=== PATIENT | female | born 1955 | race Caucasian/White ===

== ENCOUNTER 2024-05-27 16:45 | Outpatient (CLI) | payer OTHER, SELFPAY ==
--- NOTE | ~2024-05-27 | XR_ITS ---
EXAMINATION: XR cervical spine 4-5V DATE: 05/27/2024 17:11 INDICATION: Neck pain. Cervical postlaminectomy syndrome. TECHNIQUE: 5 views of cervical spine including standing views were obtained. COMPARISON: None. FINDINGS: There is 16 degrees levoscoliosis of cervicothoracic spine. There are changes of anterior f usion procedure at C5-C6 with healed interbody bone graft and anterior plate and screws. Vertebral jennifer dy heights are normal. There is mildly decreased disc height at C4-C5 and C6-C7. There is multilevel facet joint osteoarthritis, severe on the left at C5-C6, C6-C7, and C7-T1. No central canal stenosis or prevertebral soft tissue swelling. IMPRESSION: 1. Mild cervical spondylosis. 2. Anterior fusion procedure at C5-C6. 3. Cervicothoracic levoscoliosis. Reviewed, dictated and finalized at location A. MBLER TYPE BAR AND SEGMENT
--- NOTE | ~2024-05-27 | XR_ITS ---
EXAMINATION: XR thoracic spine 3V DATE: 05/27/2024 17:11 INDICATION: Thoracic scoliosis. Back pain. TECHNIQUE: 3 views of thoracic spine standing were obtained. COMPARISON: None. FINDINGS: There is 16 degrees levoscoliosis of cervicothoracic spine. Vertebral body heights are norm al. There is mild to moderately decreased disc height at many levels of thoracic spine. There are julieta nges of anterior fusion procedure in cervical spine. IMPRESSION: 1. Moderate thoracic spondylosis. 2. Cervicothoracic levoscoliosis. Reviewed, dictated and finalized at location A. CULTURAL RESEARCH DIRECTOR
== END 2024-05-27 16:46 | disposition home or self-care (01) ==
LOC: MICIMG 16:50
PROVIDERS: PCP Internal Medicine; Visit Provider Physician Assistant
DX: M54.16 Radiculopathy, lumbar region (principal); M41.84 Other forms of scoliosis, thoracic region; M96.1 Postlaminectomy syndrome, not elsewhere classified; R29.2 Abnormal reflex
CPT/HCPCS: 72050; 72072

== ENCOUNTER 2024-06-01 11:13 | Outpatient (CLI) | payer OTHER, SELFPAY ==
--- NOTE | ~2024-06-01 | MR_ITS ---
EXAMINATION: MR thoracic spine wo con DATE: 06/01/2024 12:26 INDICATION: Lumbar radiculopathy TECHNIQUE: Magnetic resonance imaging (MRI) of the thoracic spine was performed without intravenous c ontrast. Sagittal localizer T1-weighted FSE of the cervicothoracic spine was obtained. Thoracic spine sequences included sagittal T2-weighted FSE, sagittal T1-weighted SE, Sagittal T2-weighted FS FSE, a nd axial T2-weighted FSE. COMPARISON: None FINDINGS: 20 degrees upper thoracic levoscoliosis. Sagittal alignment is normal.Vertebral body heights are norm al. Normal marrow signal.Multilevel mild to moderate disc height loss from T3-T4 through T10-T11 with right-sided predominance and upper thoracic levoscoliosis. There is multilevel moderate and severe f acet osteoarthritis throughout the thoracic spine which along with a few very small disc protrusions at a few levels contributes to multilevel contributes to mild central canal stenosis at several level s throughout the thoracic spine most prominent at T7-T8, T8-T9 and T10-T11. The paracentral disc prot rusions on the right at T7-T8 and on the left at T8-T9 mildly indents the ventral surface of the cord at these levels. There is mild neural from stenosis at a few levels in the mid to upper thoracic spi ne. There is normal spinal cord signal. The conus terminates at L2. Paravertebral soft tissues are un remarkable. Trace left pleural effusion. IMPRESSION: 1. 20 degrees upper thoracic levoscoliosis with mild to moderate spondylosis. Reviewed, dictated and finalized at location B. FOOD CREW LEAD
--- NOTE | ~2024-06-01 | MR_ITS ---
EXAMINATION: MR cervical spine wo con DATE: 06/01/2024 12:06 INDICATION: Neck pain. TECHNIQUE: Magnetic resonance imaging (MRI) of the cervical spine was performed without intravenous c ontrast. COMPARISON: Cervical spine radiographs 05/27/2024 FINDINGS: There is levoscoliosis of cervicothoracic spine. Vertebral body heights are normal. There a re changes of anterior fusion procedure at C5-C6 with healed interbody bone graft and anterior plate and screws. There is mildly decreased disc height at C4-C5. There is volume loss and increased T2-maye ghted signal intensity in the spinal cord at C5-C6, consistent with myelomalacia. The following disc levels are specifically discussed: C2-C3: The disc does not extend beyond the endplate margin. There is mild right uncovertebral joint o steoarthritis. There is mild bilateral facet joint osteoarthritis. There is no neural foraminal steno sis. There is no central canal stenosis. C3-C4: There is a central protrusion. There is mild bilateral uncovertebral joint osteoarthritis. The re is no facet joint osteoarthritis. There is no neural foraminal stenosis. There is mild central can al stenosis with ventral indentation of the spinal cord. C4-C5: There is a central extrusion. There is mild bilateral uncovertebral joint osteoarthritis. Ther e is no facet joint osteoarthritis. There is mild left neural foraminal stenosis. There is mild centr al canal stenosis. C5-C6: There is moderate bilateral uncovertebral joint hypertrophy. There is mild left facet joint os teoarthritis. There is mild bilateral neural foraminal stenosis. There is no central canal stenosis. C6-C7: There is a central extrusion. There is mild bilateral uncovertebral joint osteoarthritis. Ther e is mild right and moderate left facet joint osteoarthritis. There is mild bilateral neural foramina l stenosis. There is mild central canal stenosis. C7-T1: The disc does not extend beyond the endplate margin. There is no uncovertebral joint osteoarth ritis. There is mild right and moderate left facet joint osteoarthritis. There is mild bilateral neur al foraminal stenosis. There is no central canal stenosis. IMPRESSION: 1. Myelomalacia at C5-C6. 2 . Mild cervical spondylosis. 3. Anterior fusion procedure at C5-C6. Reviewed, dictated and finalized at location A. FOREMAN
== END 2024-06-01 11:14 | disposition home or self-care (01) ==
PROVIDERS: PCP Internal Medicine; Visit Provider Physician Assistant
DX: M47.22 Other spondylosis with radiculopathy, cervical region (principal); Z98.1 Arthrodesis status; Z01.818 Encounter for other preprocedural examination
CPT/HCPCS: 72141; 72146

== ENCOUNTER 2024-08-27 10:28 | Outpatient (CLI) | payer OTHER, SELFPAY ==
--- NOTE | 2024-08-27 | ECG_ITS ---
Test Date: 2024-08-27 10:20:43 Measurements Intervals [place] Rate: 69 P: 67 AL: 152 QRS: 66 QRSD: 77 T: 60 QT: 428 QTc: 459 Interpretive Statements SINUS RHYTHM BORDERLINE T WAVE ABNORMALITY- ANTERIOR LEADS BASELINE ARTIFACT- V3-V4 BORDERLINE ECG No previous ECG available for comparison Electronically Signed On 08-27-2024 12:01:12 CDT by Tommie Gregory D.O.
[2024-08-27 11:06] LABS: Basophils Percent Auto 0.4 % (0.2-1.2); Eosinophils Absolute Auto 0.4 K/mm3 (0-0.3); Eosinophils Percent Auto 5.9 % (0-4.4); Hematocrit 39.5 % (37.0-47.0); Hemoglobin 13.3 g/dL (12.0-15.0); Immature Granulocyte Absolute 0.02 K/mm3 (0.00-0.031); Immature Granulocyte Percent A 0.3 % (0-0.5); Lymphocytes Absolute Auto 2.81 K/mm3 (0.9-3.2); Lymphocytes Percent Auto 41.6 % (18.3-44.2); Mean Corpuscular HGB Conc 33.7 g/dl (32-36); Mean Corpuscular Hemoglobin 33.3 pg (26-34); Mean Platelet Volume 9.4 fl (7.4-10.4); Monocytes Absolute Auto 0.5 K/mm3 (0.1-0.6); Neutrophils Percent Auto 43.8 % (45.5-73.1); Platelet Count Result 165 k/mm3 (150-375); Red Blood Count 3.99 M/mm3 (4.2-5.4); Red Cell Distribution Width 12.3 % (11.5-14.5); White Blood Count 6.8 K/mm3 (4.5-10.0)
[2024-08-27 11:18] LABS: Add Urine Microscopic? NO; Appearance Urine Clear (Clear); Bilirubin Urine Negative (Negative); Blood Urine Negative (Negative); Color Urine Yellow (Yellow); Glucose Urine UA Negative (Negative); Ketones Urine Negative (Negative); Leukocyte Esterase Ur Negative LEU/UL (Negative); Nitrate Urine Negative (Negative); Protein Urine Negative (Negative); Urobilinogen Urine 0.2 mg/dL (<2.0)
--- OUTSIDE RECORDS SUMMARY | 2024-08-27 11:18 | XMS_ITS | Encounter Summary ---
Author Organization [facility] Healthcare Address [address] [place] [id number] Care Team Providers Care Business Dean Name Role Phone Anam Reynolds MD Primary Care Provider [phone] Anam Reynolds MD Unavailable [phone] Encounter Details Date Type Department Care Team (Late st Contact Info) Description 06/01/2024 [place] Only [facility] [place] [address] [place] [id number] Scanning, Provider Social History Tobacco Use Types Packs/Day Years Used Date Smoking Tobacco: Every Day Cigarettes 0.3 51.3 Started: 1973 Passive Smoke Exposure: Current Smokeless Tobacco: Never Comments:4 cigarettes per da y Alcohol Use Standard Drinks/Week Comments Not Currently 0 (1 standard drink = 0.6 oz pur e alcohol) AUDIT-C Answer Date Recorded Q1: How often do you have a drink containing alcohol? Never 02/03/2024 Q2: How many drinks containi ng alcohol do you have on a typical day when you are drinking? Patient does not drink Q3: How often do you have si x or more drinks on one occasion? Never 02/03/2024 PHQ-2 Answer Date Recorded PHQ-2 Total Score (If total score is 3 or more points, staff should administer the PHQ-9) 0 10/18/2023 Comments No Sex and Gender Information Value Date Recorded Sex Assigned at Not on file Legal Sex Female 8:25 AM CDT Gender Identity Female 10/04/2020 10:37 AM CDT Sexual Orientation Not on file documented as of this encounter Plan of Treatment Not on file documented as of this encounter Procedures Procedure Name Priority Date/Time Associated Diagnosis Comments SCAN - RADIOLOGY/IMAGING 06/01/2024 documented in this encounter Results * SCAN - RADIOLOGY/IMAGING (06/01/2024) Anatomical Region Laterality Modality Other us Provider Scanning Final Result documented in this encounter Visit Diagnoses Not on filedocumented in this encounter Care Teams Business Dean Relationship Specialty Start Date End Date Anam Reynolds MD [address] [facility] [facility] [address] [place] [address] PCP - General Internal Medicine 07/03/18 Anam Reynolds MD [address] [facility] [address] [place] [address] Internal Medicine 07/03/18 documented as of this encounter
--- OUTSIDE RECORDS SUMMARY | 2024-08-27 11:18 | XMS_ITS | Referral Summary ---
Author Organization [facility] Address [address] [place] [address] Care Team Providers Care Broadcast Chief Engineer Name Role Phone Anam Reynolds MD Primary Care Provider [phone] Anam Reynolds MD Unavailable [phone] Encounters Date Type Department Care Team Description 07/27/2024 Telephone [facility] Internal Medicine [address] [place] [phone] Anam Reynolds MD Medical Question/Miscellaneous 06/24/2024 2:45 PM E BUSINESS CONSULTANT Office Visit [facility] Internal Medicine [address] [place] [phone] Anam Reynolds MD Acquired hypothyroidism (Primary Dx); Simple chronic bronchitis (HCC); Dyslipidemia; History of breast cancer; Spinal stenosis of lumbar region without neurogenic claudication; BMI 24.0-24.9, adult; Encounter for immunization; Tobacco use 06/17/2024 Orders Only [facility] Internal Medicine [address] [place] [phone] Anam Reynolds MD 06/15/2024 Telephone [facility] Internal Medicine [address] [place] [phone] Anam Reynolds MD Referral Request 06/01/2024 Orders Only [facility] Health Information Management [address] [place] [address] Scanning, Provider from Last 3 Months Allergies Active Allergy Reactions Criticality Noted Date Comments Adhesive Rash Medium 07/02/2017 If leaves on too long, has skin irritation Codeine Vomiting Low 07/02/2017 Codeine Phosphate Vomiting Low 08/26/2018 Famotidine Nausea only Low 06/03/2019 Sulfa (Sulfonamide Antibiotics) Swelling Medium 07/02/2017 Tongue, lips swell, difficulty breathing Tramadol Nausea & Vomiting Low 02/28/2021 Medications nebulizers [facility] as directed TAKE: as directed, as directed compAir 06/15/19 17 Active bisacodyl EC (DULCOLAX EC) 5 mg EC tablet 1 tablet (5 mg total) daily TAKE: 1 tablet as needed, Once a day Active naproxen (ANAPROX,ALEVE) 550 mg tablet every 12 (twelve) hours TAKE: 1 tablet with food or milk as needed, every 12 hrs Active calcium carbonate-vitamin D3 1,250 mg (500 mg elemental)-600 unit tablet Take 500 mg by mouth daily 30 tablet 5 06/08/19 23 Active levothyroxine (SYNTHROID) 75 mcg tablet Take 1 tablet (75 mcg total) by mouth validation intern before breakfast Take one tablet in the morning with no food or medications for 2 hours 90 tablet 2 12/10/19 24 Active baclofen (LIORESAL) 10 mg tablet TAKE 1 TABLET BY MOUTH TWICE A DAY 180 tablet 12/26/19 24 Active Additional Information Patient not taking.Reported on 06/24/2024 albuterol HFA (PROVENTIL HFA,VENTOLIN HFA,PROAIR HFA) 90 mcg/actuation inhaler Inhale 2 puffs every 4 (four) hours as needed for wheezing 1 each 3 01/27/20 24 Active albuterol 2.5 mg /3 mL (0.083 %) nebulizer solution Take 3 mL (2.5 mg total) by nebulization every 6 (six) hours as needed for wheezing or shortness of breath 120 mL 1 01/27/20 24 Active ALPRAZolam (XANAX) 0.25 mg tablet Take 1 tablet (0.25 mg total) by mouth nightly as needed for anxiety 30 tablet 02/03/20 24 Active pravastatin (PRAVACHOL) 20 mg tablet TAKE 1 TABLET BY MOUTH EVERY DAY 100 tablet 1 04/14/[address] (PROTONIX) 40 mg EC tablet TAKE 1 TABLET BY MOUTH EVERY DAY 90 tablet 1 06/29/19 25 Active Breyna 80-4.5 mcg/actuation inhaler INHALE 2 PUFFS BY MOUTH 2 TIMES A DAY RINSE MOUTH WITH WATER AFTER USE. DO NOT SWALLOW. 30.9 each 1 06/29/19 25 Active ondansetron ODT (ZOFRAN-ODT) 4 mg disintegrating tablet Take 1 tablet (4 mg total) by mouth 3 (three) times a day as needed for nausea or vomiting 30 tablet 1 07/09/19 25 Active Active Problems Problem Noted Date Diagnosed Date Colon cancer screening 07/11/2023 Assessment & Plan (10/18/2023 11:44 AM CDT): Patient does not want to have colonoscopy at this time because of her back issues. She had colonoscopy 5 years ago that showed 1 polyp. She was seen by the event staff. Patient wants to have Cologuard test done. We will order that. Patient still can follow up with a event staff if she changes her mind. Assessment & Plan (07/11/2023 12:46 PM E BUSINESS CONSULTANT): GI referral for colonoscopy Screening for osteoporosis 06/06/2022 Assessment & Plan (06/06/2022 11:08 AM E BUSINESS CONSULTANT): DEXA scan in May 2022 showed T-score of -1.3. Discussed fall precautions and advised to take vitamin D 1000 units daily and calcium 500 mg daily LUQ pain 08/07/2021 Assessment & Plan (09/04/2021 11:27 AM CDT): Patient was seen by the event staff. She is on Protonix. She is scheduled for EGD to [facility] Assessment & Plan (08/07/2021 12:18 PM CDT): Patient complains of discomfort in the left upper quadrant area. Exam is unremarkable. Will obtain CT of the abdomen for further evaluation and will make a referral to see GI doctor for possible endoscopy. She will continue with current medications at this time Nausea 07/26/2021 Assessment & Plan (07/26/2021 11:24 AM E BUSINESS CONSULTANT): Patient has severe nausea for couple of weeks. We will start her on Protonix 40 mg daily. I told her to avoid food that triggers her symptoms. Try to avoid spicy food and oily food at this time. Will obtain right upper quadrant ultrasound as well to rule out gallbladder cause of this severe nausea. Advised to increase fluid intake. I told her also to take probiotic twice daily. Will evaluate her again in few weeks. Skin rash 04/18/2021 Assessment & Plan (03/06/2022 12:19 PM CDT): Patient with chronic patches of scaly lesions on the lower extremities and will make a referral to see the exploration geologist Assessment & Plan (05/30/2021 9:40 AM E BUSINESS CONSULTANT): Skin rash in the lower extremities improved significantly. Assessment & Plan (04/18/2021 2:37 PM E BUSINESS CONSULTANT): The patient has multiple flat erythematous lesions on both arms and legs. I think it is related to recent COVID infection. Patient has no itching. She will be started on prednisone in a tapering does and she will call us for persistent symptoms. Thrush 04/01/2021 Assessment & Plan (05/30/2021 9:41 AM E BUSINESS CONSULTANT): We will refill nystatin 4 times daily for 10 days Assessment & Plan (04/01/2021 12:41 PM E BUSINESS CONSULTANT): Due to use of Symbicort and recent steroid taper dose will refill nystatin swish and swallow. Patient instructed to follow up with PCP for any worsening symptoms. Patient verbalized understanding and agreed to plan of care. Encounter for well woman kathy maharaj with routine gynecological exam 10/04/2020 BMI 25.0-25.9,adult 10/04/2020 Skin lesion 12/08/2019 Assessment & Plan (12/08/2019 2:24 PM CDT): Patient has small papular skin lesion on the forehead with no skin changes most likely seborrheic keratosis and it was treated with liquid nitrogen. Cervical disc disease 03/04/2019 Lumbar disc disease 03/04/2019 Assessment & Plan (09/04/2022 8:07 AM CDT): Patient with chronic back pain. She had epidural injections. She was seen by neurosurgeon. It was felt that surgery was not needed Assessment & Plan (03/04/2019 3:10 PM CDT): Neurosurgical referral for further evaluation Myelopathy 12/18/2018 Neuropathic pain 12/18/2018 Spasms of the hands or feet 12/18/2018 Cervical disc herniation 12/03/2018 Assessment & Plan (09/06/2020 2:44 PM CDT): Status post cervical laminectomy Assessment & Plan (09/02/2019 2:43 PM CDT): Status post cervical laminectomy Assessment & Plan (06/03/2019 2:27 PM E BUSINESS CONSULTANT): Status post cervical fusion Assessment & Plan (03/04/2019 3:10 PM CDT): Status post diskectomy Assessment & Plan (12/03/2018 2:10 PM CDT): The patient had surgery with persistent pain in her upper extremities and she has follow-up with pain management. Anxiety 12/03/2018 Assessment & Plan (06/24/2024 7:56 AM E BUSINESS CONSULTANT): Patient takes Xanax p.r.n.. No side effects with the medication Assessment & Plan (12/03/2018 2:10 PM CDT): The patient has increased anxiety because of chronic pain. We will start her on Wellbutrin XL 150 mg daily and side effects were explained Tobacco use 12/03/2018 Assessment & Plan (06/24/2024 3:31 PM E BUSINESS CONSULTANT): Discussed smoking cessation and different methods to help with that. Discussed the risks of smoking including COPD, CAD and lung cancer etc. Total time spent was 4 minutes. Assessment & Plan (2022 5:32 PM CDT): Discussed smoking cessation and different methods to help with that. Discussed the risks of smoking including COPD, CAD and lung cancer etc. Total time spent was 3 minutes. Assessment & Plan (09/04/2022 8:07 AM CDT): Discussed smoking cessation again Assessment & Plan (06/06/2022 8:03 AM E BUSINESS CONSULTANT): Discussed smoking cessation and different methods to help with that. Discussed the risks of smoking including COPD, CAD and lung cancer etc. Total time spent was 4 minutes. Assessment & Plan (09/04/2021 11:27 AM CDT): Discussed smoking cessation and different methods to help with that. Discussed the risks of smoking including COPD, CAD and lung cancer etc. we will start her on Wellbutrin XR 150 mg daily Total time spent was 4 minutes. Assessment & Plan (05/30/2021 9:42 AM E BUSINESS CONSULTANT): Patient smokes about 5 cigarettes daily. Discussed smoking cessation and different methods to help with that. Discussed the risks of smoking including COPD, CAD and lung cancer etc. Total time spent was 3 minutes. Assessment & Plan (03/07/2021 12:34 PM CDT): Discussed smoking cessation and different methods to help with that. Discussed the risks of smoking including COPD, CAD and lung cancer etc. Total time spent was 3 minutes. Assessment & Plan (12/06/2020 1:12 PM CDT): Discussed smoking cessation and different methods to help with that. Discussed the risks of smoking including COPD, CAD and lung cancer etc. Total time spent was 3 minutes. Assessment & Plan (12/08/2019 12:42 PM CDT): Discussed smoking cessation and different methods to help with that. Discussed the risks of smoking including COPD, CAD and lung cancer etc. Total time spent was 3 minutes. Assessment & Plan (12/03/2018 2:11 PM CDT): Discussed smoking cessation and different methods to help with that. Discussed the risks of smoking including COPD, CAD and lung cancer etc. Total time spent was 3 minutes. Peripheral neuropathy 02/27/2018 Assessment & Plan (09/04/2021 11:26 AM CDT): Patient with neuropathy secondary to chronic back pain. 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 Assessment & Plan (12/03/2018 2:09 PM CDT): The patient has a chronic numbness in the lower extremities most likely secondary to the back disease Assessment & Plan (09/03/2018 12:24 PM CDT): Patient continues to have numbness in the lower extremities Left carpal tunnel syndrome 01/11/2017 Spinal stenosis of lumbar region 12/24/2016 Assessment & Plan (06/24/2024 7:56 AM E BUSINESS CONSULTANT): Patient is followed by pain management Assessment & Plan (02/03/2024 11:45 AM CDT): Patient with persistent degenerative disc disease and severe spinal stenosis. She was evaluated by neurosurgeon few years ago and he recommended against surgery at that time. Patient likes due explore other options. Will make a referral to see pain management again for further evaluation. Assessment & Plan (01/27/2024 3:11 PM CDT): Patient with chronic back pain. She had epidural injections. She was seen by neurosurgeon in the past. She had recurrent pain recently. We did physical therapy with persistent symptoms. She had MRI of the lumbar spine today. Assessment & Plan (10/18/2023 11:42 AM CDT): Patient with chronic lower back pain. She has radiation down her legs. She has increased pain in the last few months. Patient takes pain medications and she tried muscle relaxants with no improvement. Patient had epidural injections in the past. She was evaluated by neurosurgeon as well in the past. We ordered MRI of the lumbar spine in the insurance company is requesting physical therapy. Patient will start on physical therapy. Patient to call us for persistent symptoms. Patient to go to the emergency room for weakness in the lower extremities or incontinence or worsening symptoms. Assessment & Plan (02/26/2023 12:38 PM CDT): Patient with spinal stenosis of the lumbar spine. Patient has increased symptoms with pain radiating down both legs. Patient is leaving town next week so she does not want any workup at this time. Patient may need MRI and pain management referral depending on the progress of her symptoms. Patient to let me know if she wants to proceed with more testing Assessment & Plan (06/06/2022 8:03 AM E BUSINESS CONSULTANT): Status post epidural injections in the past. Patient was seen by neurosurgeon. No surgical intervention is needed. Assessment & Plan (12/15/2021 12:24 PM CDT): Patient with chronic back pain status post epidural injections. She was evaluated by neurosurgeon. Does not seem that surgery will be of benefits. She takes baclofen once or twice daily with some relief. Assessment & Plan (05/30/2021 9:40 AM E BUSINESS CONSULTANT): Patient was advised to follow-up with pain management. Will refill baclofen Assessment & Plan (03/07/2021 12:33 PM CDT): Patient is under the care of pain management. She is on physical therapy and she is scheduled for epidural injections. She did epidural injections in the past and they did not help Assessment & Plan (12/06/2020 2:48 PM CDT): Patient was evaluated by neurosurgeon. No surgical intervention is needed. She was offered to see pain management. She wants to wait on that. Assessment & Plan (12/08/2019 12:42 PM CDT): Patient was evaluated by neurosurgeon. No surgical intervention is needed Assessment & Plan (09/02/2019 2:42 PM CDT): The patient has a chronic back pain secondary to lumbar stenosis. She was evaluated by neurosurgeon. It seems that no surgical intervention is needed or can help Assessment & Plan (06/03/2019 2:26 PM E BUSINESS CONSULTANT): Patient was evaluated by more than 1 neurosurgeon. I don't believe that she will benefit from surgery. The patient uses a walker for ambulation. The patient was advised to avoid heavy lifting or carrying or pushing . Assessment & Plan (12/03/2018 2:09 PM CDT): As above Lumbago with sciatica, unspecified side 12/08/19 Assessment & Plan (12/03/2018 2:08 PM CDT): The patient has a chronic pain in the lower back area and the lower extremities and she has follow-up with pain management. Assessment & Plan (09/03/2018 12:24 PM CDT): No change and the patient has follow-up with a neurologist Primary insomnia 12/07/2016 Assessment & Plan (07/11/2023 8:08 AM E BUSINESS CONSULTANT): Controlled on trazodone Assessment & Plan (02/26/2023 8:05 AM CDT): Controlled on trazodone Assessment & Plan (2022 5:32 PM CDT): Controlled on trazodone Assessment & Plan (09/04/2021 11:27 AM CDT): Patient will be started on trazodone 100 mg before bedtime. Assessment & Plan (12/03/2018 2:10 PM CDT): Patient takes melatonin 5 mg q.h.s. P.r.n. With good results Neck pain 08/24/2016 Hyperglycemia 01/24/2016 Assessment & Plan (07/11/2023 8:08 AM E BUSINESS CONSULTANT): Controlled on diet Assessment & Plan (02/26/2023 8:05 AM CDT): Controlled on diet Assessment & Plan (2022 5:31 PM CDT): Controlled on diet Assessment & Plan (06/06/2022 8:02 AM E BUSINESS CONSULTANT): Continue low carb diet and encourage exercise as tolerated Assessment & Plan (03/06/2022 8:02 AM CDT): Continue low carb diet Assessment & Plan (12/15/2021 12:23 PM CDT): Fasting blood sugar was 105. Continue low carb diet Assessment & Plan (09/04/2021 11:26 AM CDT): Continue low calorie diet Assessment & Plan (05/30/2021 9:40 AM E BUSINESS CONSULTANT): Continue low carb diet Assessment & Plan (03/07/2021 12:33 PM CDT): Continue low carb diet and increase activity as tolerated Assessment & Plan (12/06/2020 1:12 PM CDT): Continue low carb diet and ambulate as tolerated Assessment & Plan (09/06/2020 2:43 PM CDT): Continue low carb diet Assessment & Plan (06/08/2020 12:46 PM E BUSINESS CONSULTANT): Low carb diet Assessment & Plan (03/08/2020 1:53 PM CDT): Continue low carb diet and we discussed weight loss Assessment & Plan (12/08/2019 12:42 PM CDT): Continue low carb diet and will continue to monitor Assessment & Plan (06/03/2019 12:37 PM E BUSINESS CONSULTANT): Continue low carbohydrate diet Assessment & Plan (03/04/2019 3:10 PM CDT): Sugar level is normal Assessment & Plan (12/03/2018 2:08 PM CDT): Continue low carbohydrate diet and will continue to monitor Assessment & Plan (09/03/2018 12:23 PM CDT): Continue low carb diet History of breast cancer 10/15/2015 Assessment & Plan (06/24/2024 7:56 AM E BUSINESS CONSULTANT): Status post mastectomy. She is up-to-date with mammogram Assessment & Plan (10/18/2023 7:52 AM CDT): Status post mastectomy. She is up-to-date with mammogram Assessment & Plan (02/26/2023 8:05 AM CDT): Status post mastectomy. She is up-to-date with mammogram Assessment & Plan (2022 5:32 PM CDT): Status post mastectomy. She is up-to-date with mammogram Assessment & Plan (09/04/2022 8:06 AM CDT): Status post mastectomy. Looks mammogram in May 2022 was normal Assessment & Plan (05/30/2021 9:41 AM E BUSINESS CONSULTANT): Status post mastectomy and she is up-to-date with mammogram Assessment & Plan (03/07/2021 12:34 PM CDT): Mammogram in January 2021 was normal Assessment & Plan (12/06/2020 1:12 PM CDT): Continue annual mammogram Assessment & Plan (12/08/2019 12:43 PM CDT): Continue with annual mammogram Assessment & Plan (06/03/2019 2:27 PM E BUSINESS CONSULTANT): Patient was advised to have annual mammogram Assessment & Plan (12/03/2018 2:09 PM CDT): Status post lumpectomy and she does mammogram on annual basis COPD (chronic obstructive pulmonary disease) Assessment & Plan (06/24/2024 7:55 AM E BUSINESS CONSULTANT): Asymptomatic. Continue Symbicort Assessment & Plan (01/27/2024 8:01 AM CDT): Asymptomatic. Continue Symbicort Assessment & Plan (10/18/2023 7:52 AM CDT): Asymptomatic. Continue Symbicort Assessment & Plan (07/11/2023 8:07 AM E BUSINESS CONSULTANT): Asymptomatic. Continue Symbicort Assessment & Plan (02/26/2023 12:38 PM CDT): Asymptomatic. Continue Symbicort Assessment & Plan (2022 5:31 PM CDT): Asymptomatic Assessment & Plan (09/04/2022 8:06 AM CDT): Patient uses Symbicort with good results Assessment & Plan (06/06/2022 8:02 AM E BUSINESS CONSULTANT): Patient uses Symbicort with good results Assessment & Plan (03/06/2022 8:02 AM CDT): Controlled on Symbicort Assessment & Plan (12/15/2021 12:23 PM CDT): Controlled on Symbicort Assessment & Plan (09/04/2021 11:26 AM CDT): Controlled on Symbicort. She uses albuterol inhaler on occasional basis Assessment & Plan (05/30/2021 9:41 AM E BUSINESS CONSULTANT): Asymptomatic. She uses albuterol inhaler on occasional basis. Advised to continue to Symbicort. Discussed smoking cessation. Assessment & Plan (03/07/2021 12:32 PM CDT): Continue Symbicort daily and albuterol as needed Assessment & Plan (12/06/2020 1:12 PM CDT): Controlled on Symbicort. Discussed smoking cessation again Assessment & Plan (09/06/2020 2:43 PM CDT): Controlled on Symbicort and we discussed smoking cessation Assessment & Plan (06/08/2020 2:55 PM E BUSINESS CONSULTANT): Patient was advised to cut down Symbicort to 1 inhalation daily and continue to rinse her mouth on regular basis. She will call us if she has persistent oral thrush Assessment & Plan (03/08/2020 1:52 PM CDT): We will start her on Symbicort 80 mcg 2 puffs b.i.d. because of increased use of the albuterol inhaler and see if that helps with the symptoms. We discussed smoking cessation. Assessment & Plan (12/08/2019 12:41 PM CDT): Asymptomatic. We discussed smoking cessation Assessment & Plan (09/02/2019 2:41 PM CDT): The patient is currently asymptomatic. She uses nebulizer treatment on occasional basis Assessment & Plan (06/03/2019 12:37 PM E BUSINESS CONSULTANT): The patient is asymptomatic and we discussed smoking cessation Assessment & Plan (03/04/2019 3:11 PM CDT): Patient is asymptomatic. Discussed smoking cessation and different methods to help with that. Discussed the risks of smoking including COPD, CAD and lung cancer etc. Total time spent was 3 minutes. Assessment & Plan (12/03/2018 2:07 PM CDT): The patient is currently stable and she uses Ventolin inhaler and nebulizer treatment on as needed basis. Assessment & Plan (09/03/2018 12:23 PM CDT): Asymptomatic. We discussed smoking cessation. She smokes less than 5 cigarettes daily. GERD (gastroesophageal reflux disease) 6 Assessment & Plan (07/11/2023 8:08 AM E BUSINESS CONSULTANT): Patient is stable with no GI symptoms Assessment & Plan (03/08/2020 1:53 PM CDT): Patient is stable with no GI symptoms Assessment & Plan (12/08/2019 12:42 PM CDT): Controlled on Pepcid Assessment & Plan (06/03/2019 12:37 PM E BUSINESS CONSULTANT): Asymptomatic. Continue Pepcid Assessment & Plan (03/04/2019 3:09 PM CDT): Continue Pepcid 40 mg daily Assessment & Plan (12/03/2018 2:08 PM CDT): Controlled on Pepcid Assessment & Plan (09/03/2018 12:23 PM CDT): Asymptomatic Dyslipidemia 08/02/2015 Assessment & Plan (06/24/2024 7:55 AM E BUSINESS CONSULTANT): Controlled on current medications. Continue low-fat diet. Will continue to monitor . Assessment & Plan (01/27/2024 8:01 AM CDT): Controlled on current medications. Continue low-fat diet. Will continue to monitor . Assessment & Plan (07/11/2023 8:08 AM E BUSINESS CONSULTANT): Controlled on current medications. Continue low-fat diet. Will continue to monitor . Assessment & Plan (2022 5:31 PM CDT): Controlled on current medications. Continue low-fat diet. Will continue to monitor . Assessment & Plan (06/06/2022 8:02 AM E BUSINESS CONSULTANT): Controlled on current medications. Continue low-fat diet. Will continue to monitor . Assessment & Plan (03/06/2022 8:02 AM CDT): Controlled on current medications. Continue low-fat diet. Will continue to monitor . Assessment & Plan (12/15/2021 12:23 PM CDT): Controlled on current medications. Continue low-fat diet. Will continue to monitor . Assessment & Plan (09/04/2021 11:26 AM CDT): Controlled on current medications. Continue low-fat diet. Will continue to monitor . Assessment & Plan (05/30/2021 9:41 AM E BUSINESS CONSULTANT): Controlled on current medications. Continue low-fat diet. Will continue to monitor . Assessment & Plan (03/07/2021 12:32 PM CDT): Controlled on current medications. Continue low-fat diet. Will continue to monitor . Assessment & Plan (12/06/2020 1:12 PM CDT): Controlled on current medications. Continue low-fat diet. Will continue to monitor . Assessment & Plan (09/06/2020 2:43 PM CDT): Controlled on current medications. Continue low-fat diet. Will continue to monitor . Assessment & Plan (06/08/2020 12:46 PM E BUSINESS CONSULTANT): Controlled on current medications. Continue low-fat diet. Will continue to monitor . Assessment & Plan (03/08/2020 1:53 PM CDT): Controlled on current medications. Continue low-fat diet. Will continue to monitor . Assessment & Plan (12/08/2019 12:42 PM CDT): Controlled on current medications. Continue low-fat diet. Will continue to monitor . Assessment & Plan (09/02/2019 2:41 PM CDT): Controlled on current medications. Continue low-fat diet. Will continue to monitor . Assessment & Plan (06/03/2019 12:37 PM E BUSINESS CONSULTANT): Controlled on current medications. Continue low-fat diet. Will continue to monitor . Assessment & Plan (03/04/2019 3:09 PM CDT): Controlled on current medications. Continue low-fat diet. Will continue to monitor . Assessment & Plan (12/03/2018 2:08 PM CDT): Controlled on current medications. Continue low-fat diet. Will continue to monitor . Assessment & Plan (09/03/2018 12:23 PM CDT): Controlled on current medications. Continue low-fat diet. Will continue to monitor . Acquired hypothyroidism 08/02/2015 Assessment & Plan (06/24/2024 7:55 AM E BUSINESS CONSULTANT): Continue current dose of medication. Will continue to monitor Assessment & Plan (01/27/2024 8:01 AM CDT): Continue current dose of medication. Will continue to monitor Assessment & Plan (10/18/2023 7:52 AM CDT): Continue current dose of medication. Will continue to monitor Assessment & Plan (07/11/2023 12:45 PM E BUSINESS CONSULTANT): TSH is low. Will cut down levothyroxine 250 mcg q.a.m. and repeat blood work in few months Assessment & Plan (02/26/2023 8:04 AM CDT): Continue current dose of medication. Will continue to monitor Assessment & Plan (2022 5:31 PM CDT): Continue current dose of medication. Will continue to monitor Assessment & Plan (09/04/2022 8:05 AM CDT): Continue current dose of medication. Will continue to monitor Assessment & Plan (06/06/2022 8:02 AM E BUSINESS CONSULTANT): Continue current dose of medication. Will continue to monitor Assessment & Plan (03/06/2022 8:02 AM CDT): Continue current dose of medication. Will continue to monitor Assessment & Plan (12/15/2021 12:23 PM CDT): TSH is slightly low at 0.21. Free T4 was 1.8 Patient is asymptomatic. She feels fine with no headache or dizziness or palpitation or heat or cold intolerance. Will keep her on the same does Assessment & Plan (09/04/2021 11:26 AM CDT): Continue current dose of medication. Will continue to monitor Assessment & Plan (05/30/2021 9:40 AM E BUSINESS CONSULTANT): Continue current dose of medication. Will continue to monitor Assessment & Plan (03/07/2021 12:33 PM CDT): Continue current dose of medication. Will continue to monitor Assessment & Plan (12/06/2020 2:47 PM CDT): We increased levothyroxine to 75 mcg q.a.m. and she will repeat the blood work again in 2-3 months Assessment & Plan (09/06/2020 2:43 PM CDT): Continue current dose of medication. Will continue to monitor Assessment & Plan (06/08/2020 2:56 PM E BUSINESS CONSULTANT): TSH is low. We will cut down levothyroxine dose to 50 mcg q.a.m. and repeat thyroid function test in few months Assessment & Plan (03/08/2020 1:53 PM CDT): Continue current dose of medication. Will continue to monitor Assessment & Plan (12/08/2019 12:42 PM CDT): Continue current dose of medication. Will continue to monitor Assessment & Plan (09/02/2019 2:41 PM CDT): Continue current dose of medication. Will continue to monitor Assessment & Plan (06/03/2019 12:38 PM E BUSINESS CONSULTANT): Continue current dose of medication. Will continue to monitor Assessment & Plan (03/04/2019 3:10 PM CDT): Continue current dose of medication. Will continue to monitor Assessment & Plan (12/03/2018 2:08 PM CDT): Continue current dose of medication. Will continue to monitor Assessment & Plan (09/03/2018 12:23 PM CDT): Controlled on medication Immunizations Immunization Administration Dates Next Due Influenza, Quadrivalent, Hig h Dose, Preservative Free, Intrr 02/26/2023,03/07/2021 Influenza, Quadrivalent, Spl it, Intramuscular 02/27/2018,02/25/2017,05/03/2016 Influenza, Quadrivalent, Spl it, Preservative Free, Intramuscular 03/06/2022,03/08/2020,03/04/2019 Influenza, Trivalent, High D ose, Split, Preservative Free, Intramuscular 06/24/2024 Pneumococcal Conjugate PCV 13 05/30/2021 Pneumococcal Conjugate Pcv20 09/04/2022 Social History Tobacco Use Types Packs/Day Years Used Date Smoking Tobacco: Every Day Cigarettes 0.3 51.3 Started: 1973 Passive Smoke Exposure: Current Smokeless Tobacco: Never Tobacco Cessation:Ready to Q uit: Not Asked; Counseling Given: Not Answered Comments:4 cigarettes per day Alcohol Use Standard Drinks/Week Comments Not Currently 0 (1 standard drink = 0.6 oz pur e alcohol) AUDIT-C Answer Date Recorded Q1: How often do you have a drink containing alcohol? Never 06/24/2024 Q2: How many drinks containi ng alcohol do you have on a typical day when you are drinking? Patient does not drink Q3: How often do you have si x or more drinks on one occasion? Never 06/24/2024 PHQ-2 Answer Date Recorded PHQ-2 Total Score (If total score is 3 or more points, staff should administer the PHQ-9) 0 10/18/2023 Comments No Sex and Gender Information Value Date Recorded Sex Assigned at Not on file Legal Sex Female 8:25 AM CDT Gender Identity Female 10/04/2020 10:37 AM CDT Sexual Orientation Not on file Last Filed Vital Signs Vital Sign Reading Time Taken Comments Blood Pressure 140/80 06/24/2024 2:30 PM E BUSINESS CONSULTANT Pulse 70 06/24/2024 2:30 PM E BUSINESS CONSULTANT Temperature 36.4 C (97.5 F) 06/24/2024 2:30 PM E BUSINESS CONSULTANT Respiratory Rate 18 06/24/2024 2:30 PM E BUSINESS CONSULTANT Oxygen Saturation 99% 06/24/2024 2:30 PM E BUSINESS CONSULTANT Inhaled Oxygen Concentration - - Weight 58.5 kg (129 lb) 06/24/2024 2:30 PM E BUSINESS CONSULTANT Height 154.9 cm (5' 1 ) 06/24/2024 2:30 PM E BUSINESS CONSULTANT Body Mass Index 24.37 06/24/2024 2:30 PM E BUSINESS CONSULTANT Plan of Treatment Not on file Medical Devices Implanted Type Area Braker Passenger Train Device Identifier Shelf Expiration Date Model / Serial / Lot Spinal Fusion- 8 Implanted:07/04 (Quantity not on file) Cervical-Tash mbar Spine Procedures Procedure Name Priority Date/Time Associated Diagnosis Comments COMPREHENSIVE METABOLIC PANEL Routine 06/17/2024 12:14 PM E BUSINESS CONSULTANT LIPID PANEL Routine 06/17/2024 12:14 PM E BUSINESS CONSULTANT TSH Routine 06/17/2024 12:14 PM E BUSINESS CONSULTANT T4, FREE Routine 06/17/2024 12:14 PM E BUSINESS CONSULTANT CBC WITH AUTO DIFFERENTIAL Routine 06/17/2024 12:14 PM E BUSINESS CONSULTANT SCAN - RADIOLOGY/IMAGING 06/01/2024 STOOL DNA COLOGUARD Routine 11/11/2023 11:15 AM CDT Colon cancer screening SCREENING MAMMOGRAM BILATERAL W GULSHAN Schedule Routine, Read Routine (OP Routine) 09/17/2023 10:37 AM CDT Breast cancer screening by mammogram HEPATITIS C ANTIBODY Routine 12/06/2022 11:59 AM CDT DEXA AXIAL SKELETON BONE DENSITY 1 OR MORE SITES Schedule Routine, Read Routine (OP Routine) 06/05/2022 3:40 PM E BUSINESS CONSULTANT Postmenopausal HM COLONOSCOPY Routine 07/08/2018 from Last 3 Months or Most Recently Relevant to Health Maintenance Results * (ABNORMAL) CBC with auto differential (06/17/2024 12:14 PM E BUSINESS CONSULTANT) WBC 5.7 3.8 - 10.8 Thousand/u L [facility] RBC, POC 4.18 3.80 - 5.10 Million/uL [facility] Hgb 14.2 11.7 - 15.5 g/dL [facility] Hct 41.9 35.0 - 45.0 % [facility] MCV 100.2(H) 80.0 - 100.0 fL [facility] MCH 34.0(H) 27.0 - 33.0 pg [facility] MCHC 33.9 32.0 - 36.0 g/dL [facility] Comment: For adults, a slight decrease in the calculated MCHC value (in the range of 30 to 32 g/dL) is most likely not clinically significant; however, it should be interpreted with caution in correlation with other red cell parameters and the patient's clinical condition. Rdw 12.8 11.0 - 15.0 % [facility] Platelets 173 140 - 400 Thousand/u L [facility] MPV 10.4 7.5 - 12.5 fL [facility] Neutrophils, abs 2,816 1,500 - 7,800 cells/uL [facility] Lymphocytes, abs 2,126 850 - 3,900 cells/uL [facility] Monocyte abs 450 200 - 950 cells/uL [facility] Eosinophils, abs 291 15 - 500 cells/uL [facility] Basophils, abs 17 0 - 200 cells/uL [facility] Neutrophils 49.4 % [facility] Lymphocyte pct 37.3 % [facility] Monocytes 7.9 % [facility] Eosinophils 5.1 % [facility] Basophils 0.3 % [facility] 06/17/2024 12:1 4 PM E BUSINESS CONSULTANT 06/17/2024 12:14 PM E BUSINESS CONSULTANT Narrative [facility] - 06/18/2024 9:40 AM E BUSINESS CONSULTANT FASTING:YES FASTING: YES Anam Reynolds MD LAB BLOOD ORDERABLES Final Result [facility] [id number] [facility] [place] [phone] * TSH (06/17/2024 12:14 PM E BUSINESS CONSULTANT) TSH 0.47 0.40 - 4.50 mIU/L [facility] 06/17/2024 12:1 4 PM E BUSINESS CONSULTANT 06/17/2024 12:14 PM E BUSINESS CONSULTANT Narrative [facility] - 06/18/2024 9:40 AM E BUSINESS CONSULTANT FASTING:YES FASTING: YES Anam Reynolds MD LAB BLOOD ORDERABLES Final Result Performing Organization Address [facility] Co de Phone Number [facility] [id number] [facility] [place] [address] * T4, free (06/17/2024 12:14 PM E BUSINESS CONSULTANT) Free T4 1.8 0.8 - 1.8 ng/dL [facility] 06/17/2024 12:1 4 PM E BUSINESS CONSULTANT 06/17/2024 12:14 PM E BUSINESS CONSULTANT Narrative [facility] - 06/18/2024 9:40 AM E BUSINESS CONSULTANT FASTING:YES FASTING: YES Anam Reynolds MD LAB BLOOD ORDERABLES Final Result Performing Organization Address [facility] de Phone Number [facility]ENCE [facility] [address] [place] [address] * (ABNORMAL) Lipid panel (06/17/2024 12:14 PM E BUSINESS CONSULTANT) Cholesterol 204(H) <200 mg/dL [facility] HDL 56 > OR = 50 mg/dL [facility] Triglycerides 115 <150 mg/dL [facility] LDL 125(H) mg/dL (calc) [facility] Comment: Reference range: <100 Desirable range <100 mg/dL for primary prevention; <70 mg/dL for patients with CHD or diabetic patients with > or = 2 CHD risk factors. LDL-C is now calculated using the Rao-Kamila calculation, which is a validated novel method providing better accuracy than the Friedewald equation in the estimation of LDL-C. Rao SS et al. RAMA. 2013;310(19): 8748-0837 (http://education.Hypios.Nanosc[employer]onents/faq/XFD616) Chol/HDL ratio 3.6 <5.0 (calc) [facility] Non-HDL, (LDL+VLDL) 148(H) <130 mg/dL (calc) [facility] Comment: For patients with diabetes plus 1 major ASCVD risk factor, treating to a non-HDL-C goal of <100 mg/dL (LDL-C of <70 mg/dL) is considered a therapeutic option. 06/17/2024 12:1 4 PM E BUSINESS CONSULTANT 06/17/2024 12:14 PM E BUSINESS CONSULTANT Narrative [facility] - 06/18/2024 9:40 AM E BUSINESS CONSULTANT FASTING:YES FASTING: YES Anam Reynolds MD LAB BLOOD ORDERABLES Final Result [facility] [address] [address] [facility] [place] [address] * Comprehensive metabolic panel (06/17/2024 12:14 PM E BUSINESS CONSULTANT) Glucose 86 65 - 99 mg/dL [facility] Comment: Fasting reference interval BUN 10 7 - 25 mg/dL [facility] Creatinine 0.81 0.50 - 1.05 mg/dL [facility] eGFR 79 > OR = 60 mL/min/1.7 3m2 [facility] BUN/creat ratio SEE NOTE: 6 - 22 (calc) [facility] Comment: Not Reported: BUN and Creatinine are within reference range. Sodium 139 135 - 146 mmol/L [facility] Potassium, pl 3.9 3.5 - 5.3 mmol/L [facility] Chloride 101 98 - 110 mmol/L [facility] CO2 28 20 - 32 mmol/L [facility] Calcium 9.4 8.6 - 10.4 mg/dL [facility] Protein, sr 7.3 6.1 - 8.1 g/dL [facility] Albumin 4.0 3.6 - 5.1 g/dL [facility] GLOBULIN 3.3 1.9 - 3.7 g/dL (calc) [facility] Alb/glob ratio 1.2 1.0 - 2.5 (calc) [facility] Bilirubin, total 0.7 0.2 - 1.2 mg/dL [facility] Alk phos 74 37 - 153 U/L [facility] AST 17 10 - 35 U/L [facility] ALT (SGPT) 10 6 - 29 U/L [facility] 06/17/2024 12:1 4 PM E BUSINESS CONSULTANT 06/17/2024 12:14 PM E BUSINESS CONSULTANT Narrative [facility] - 06/18/2024 9:40 AM E BUSINESS CONSULTANT FASTING:YES FASTING: YES Anam Reynolds MD LAB BLOOD ORDERABLES Final Result [facility] [address] [place] [phone] * SCAN - RADIOLOGY/IMAGING (06/01/2024) Anatomical Region Laterality Modality Other us Provider Scanning Final Result * Stool DNA - Cologuard (11/11/2023 11:15 AM CDT) Stool DNA - Cologuard Negative Negative [facility] (CLIA #:[id number]) Comment: NEGATIVE TEST RESULT. A negative Cologuard result indicates a low likelihood that a colorectal cancer (CRC) or advanced adenoma (adenomatous polyps with more advanced pre-malignant features) is present. The chance that a person with a negative Cologuard test has a colorectal cancer is less than 1 in 1500 (negative predictive value >99.9%) or has an advanced adenoma is less than 5.3% (negative predictive value 94.7%). These data are based on a prospective cross-sectional study of 10,000 individuals at average risk for colorectal cancer who were screened with both Cologuard and colonoscopy. (Ramona Gibbons. et al, N Engl J Med 2014;370(14):7307-0902) The normal value (reference range) for this assay is negative. COLOGUARD RE-SCREENING RECOMMENDATION: Periodic colorectal cancer screening is an important part of preventive healthcare for asymptomatic individuals at average risk for colorectal cancer. Following a negative Cologuard result, the [place] [employer] Society and U.S. Multi-Society Task Force screening guidelines recommend a Cologuard re-screening interval of 3 years. References: [place] [employer] Guideline for Colorectal Cancer Screening: https://www.cancer.org/cancer/fdnlh-jfvjhy-bkjnia/vuzrsefjb-arwujtzzg-zvnqbjr/ac s-rec ommendations.html.; Doug GOMES, Satya DUVAL, Giulia TURNER, Colorectal Cancer Screening: Recommendations for Physicians and Patients from the U.S. Multi-Society Task Force on Colorectal Cancer Screening , Am J Gastroenterology 2017; 112:7351-2856. TEST DESCRIPTION: Composite algorithmic analysis of stool DNA-biomarkers with hemoglobin immunoassay. Quantitative values of individual biomarkers are not reportable and are not associated with individual biomarker result reference ranges. Cologuard is intended for colorectal cancer screening of adults of either sex, 45 years or older, who are at average-risk for colorectal cancer (CRC). Cologuard has been approved for use by the U.S. FDA. The performance of Cologuard was established in a cross sectional study of average-risk adults aged 50-84. Cologuard performance in patients ages 45 to 49 years was estimated by sub-group analysis of near-age groups. Colonoscopies performed for a positive result may find as the most clinically significant lesion: colorectal cancer [4.0%], advanced adenoma (including sessile serrated polyps greater than or equal to 1cm diameter) [20%] or non- advanced adenoma [31%]; or no colorectal neoplasia [45%]. These estimates are derived from a prospective cross-sectional screening study of 10,000 individuals at average risk for colorectal cancer who were screened with both Cologuard and colonoscopy. (Ramona Rios et al, N Engl J Med 2014;370(14):6290-4820.) Cologuard may produce a false negative or false positive result (no colorectal cancer or precancerous polyp present at colonoscopy follow up). A negative Cologuard test result does not guarantee the absence of CRC or advanced adenoma (pre-cancer). The current Cologuard screening interval is every 3 years. ([place] [employer] and U.S. Multi-Society Task Force). Cologuard performance data in a 10,000 patient pivotal study using colonoscopy as the reference method can be accessed at the following location: www.Logan/results. Additional description of the Cologuard test process, warnings and precautions can be found at www.cologuard.com. Stool 11/11/2023 11:1 5 AM CDT 11/12/2023 8:02 AM CDT Anam Reynolds MD LAB BODY FLUIDS AND STOOLS ORDERABLES Final Result [facility] (CLIA #:[id number]) [address] [place] [address] * Screening Mammogram Bilateral W Gulshan (09/17/2023 10:37 AM CDT) Anatomical Region Laterality Modality Breast Bilateral Mammography Impressions 09/17/2023 10:49 AM CDT BI-RADS ATLAS category (overall): 2 - Benign There is no mammographic evidence of malignancy. A 1 year screening mammogram is recommended. The patient has been or will be contacted. We recommend annual screening mammography for women at average risk of breast cancer beginning at age 40, based on guidelines of the [place] [employer] (ACR Practice Parameter for the Performance of Screening and Diagnostic Mammography) and [place] [employer]. For women with and elevated risk of breast cancer, please refer to the ACR Practice Parameter for specific screening recommendations. The patient will be entered into a reminder system with a target due date of 1 year for her next screening exam. Narrative 09/17/2023 10:49 AM CDT Screening Mammogram Bilateral W Gulshan: 09/17/23 The study was acquired using full field digital technology and interpreted from soft copy. 2D digital mammographic views, as well as 3D digital tomosynthesis were performed in the CC and MLO projections. CLINICAL: Breast cancer screening by mammogram Medical history includes breast cancer, chemotherapy, and radiation therapy. History of breast cancer in Sister. COMPARISONS: 06/19/2022 Screening Mammogram Bilateral W Gulshan 02/01/2021 Screening Mammogram Bilateral W Gulshan 01/28/2020 Screening Mammogram Bilateral W Gulshan BREAST TISSUE: The breasts have scattered areas of fibroglandular density. FINDINGS: There are stable post-operative findings and benign calcifications in the left breast. There is a biopsy clip in the right breast. There is no new suspicious finding in either breast on mammogram. Anam Reynolds MD IMG MAMMO PROCEDURES Final Result * Hepatitis C antibody (12/06/2022 11:59 AM CDT) Hep C Ab NON-REACTI VE NON-REACT BRIAN [facility] Comment: HCV antibody was non-reactive. There is no laboratory evidence of HCV infection. In most cases, no further action is required. However, if recent HCV exposure is suspected, a test for HCV RNA (test code 77678) is suggested. For additional information please refer to http://education.Groupiter/faq/MJJ40d2 (This link is being provided for informational/ educational purposes only.) 12/06/2022 11:5 9 AM CDT 12/06/2022 12:01 PM CDT Narrative [facility] - 12/07/2022 9:34 AM CDT FASTING:NO FASTING: NO Anam Reynolds MD LAB MICROBIOLOGY - GENERAL ORDERABLES Final Result [facility] [address] [place] [address] * Dexa Axial Skeleton Bone Density 1 or 2 Site (06/05/2022 3:40 PM E BUSINESS CONSULTANT) Anatomical Region Laterality Modality Body N/A Mammography 06/06/2022 9:07 AM E BUSINESS CONSULTANT Narrative 06/06/2022 9:08 AM E BUSINESS CONSULTANT EXAM DESCRIPTION: DEXA AXIAL SKELETON BONE DENSITY 1 OR MORE SITES REASON FOR STUDY: 66 y/o year old F with given history of screening. 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 FINDINGS: AP LUMBAR SPINE L1-L4: Total BMD is 0.933 g/cm2 T-score is -1.0 LEFT HIP: Total BMD is 0.957 g/cm2 T-score is 0.1 Femoral neck BMD is 0.704 g/cm2 T-score is -1.3 FRAX: 10 year risk for a major osteoporotic fracture is 8.8 %, 10 year risk for a hip fracture is 0.9 % IMPRESSION: Based on the left femoral neck bone mineral density (T-score -1.3 ) the patient has low bone mass . REFERENCE: Bone mineral density: Normal (T-score above or = -1.0) Low bone mass (T-score between -1.0 and -2.5) replaces the previously used term osteopenia Osteoporosis (T-score = or below -2.5) Medical evaluation for secondary causes of low bone mineral density may be appropriate. FRAX is a World Health Organization validated fracture risk assessment tool that calculates a person's 10 year probability of a major osteoporosis related fracture and hip fracture. According to the National Osteoporosis Foundation guidelines, postmenopausal women and men age 50 or older with low bone mass and a 10 year probability of a major osteoporosis related fracture = or greater than 20% or a 10 year probability of a hip fracture = or greater than 3% should be considered for treatment. For further information, including treatment recommendations, please refer to the 2013 ISCD Official Positions (http://www.iscd.org) and the NOF's Clinician's Guide to Prevention and Treatment of Osteoporosis (http://www.nof.org/professionals/clinical-guidelines) THIS IS AN ELECTRONICALLY VERIFIED FINAL REPORT 06/06/2022 9:08 AM - Electronically signed by Bryan Hernández M.D. MF: [id number] Report ID: [id number] Reading Location: [id number] Procedure Note Bryan Hernández MD - 06/06/2022 EXAM DESCRIPTION: DEXA AXIAL SKELETON BONE DENSITY 1 OR MORE SITES REASON FOR STUDY: 66 y/o year old F with given history ofscreening. 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 FINDINGS: AP LUMBAR SPINE L1-L4: Total BMD is 0.933 g/cm2 T-score is -1.0 LEFT HIP: Total BMD is 0.957 g/cm2 T-score is 0.1 Femoral neck BMD is 0.704 g/cm2 T-score is -1.3 FRAX: 10 year risk for a major osteoporotic fracture is 8.8 %, 10 year risk fora hip fracture is 0.9 % IMPRESSION: Based on the left femoral neck bone mineral density(T-score -1.3 ) the patient has low bone mass . REFERENCE: Bone mineral density: Normal (T-score above or = -1.0) Low bone mass (T-score between -1.0 and -2.5) replaces thepreviously used term osteopenia Osteoporosis (T-score = or below -2.5) Medical evaluation for secondary causes of low bone mineral density may be appropriate. FRAX is a World Health Organization validated fracture risk assessmenttool that calculates a person's 10 year probability of a major osteoporosisrelated fracture and hip fracture. According to the National OsteoporosisFoundation guidelines, postmenopausal women and men age 50 or older with low bonemass and a 10 year probability of a major osteoporosis related fracture = or greater than 20% or a 10 year probability of a hip fracture = or greaterthan 3% should be considered for treatment. For further information, including treatment recommendations, please referto the 2013 ISCD Official Positions (http://www.iscd.org) and the NOF's Clinician's Guide to Prevention and Treatment of Osteoporosis (http://www.nof.org/professionals/clinical-guidelines) THIS IS AN ELECTRONICALLY VERIFIED FINAL REPORT 06/06/2022 9:08 AM - Electronically signed by Bryan Hernández M.D. MF: SHELLY Report ID: [id number] Reading Location: [id number] Anam Reynolds MD IM DXA PROCEDURES Final Re sult * COLONOSCOPY (07/08/2018) [facility] Colonoscopy Abnormal Comment:Dr. magdaleno repeat in 5 years Historical Provider HEALTH MAINTENANCE Final Result from Last 3 Months or Most Recently Relevant to Health Maintenance Insurance [facility] Care Teams Broadcast Chief Engineer Relationship Specialty Start Date End Date Anam Reynolds MD [address] [facility] [address] [place] [address] [place] [id number] PCP - General Internal Medicine 07/03/18 Anam Reynolds MD [address] [facility] [address] [place] [address] [place] [id number] Internal Medicine 07/03/18
--- OUTSIDE RECORDS SUMMARY | 2024-08-27 11:18 | XMS_ITS | Encounter Summary ---
Author Organization [facility] Address [address] [facility] [place] [address] Care Team Providers Care Office Chair Assembler Name Role Phone Anam Reynolds MD Primary Care Provider [phone] Encounter Details Date Type Department Care Team (Late st Contact Info) Description 01/29/2024 Lab Requisition [facility] - DermPath Lab [address] [facility], [place] [address] Abigail Carpenter MD [address] [facility] 3 [place] [address] Social History Tobacco Use Types Packs/Day Years Used Date Smoking Tobacco: Former Smokeless Tobacco: Never Alcohol Use Standard Drinks/Week Comments Never 0 (1 standard drink = 0.6 oz pur e alcohol) AUDIT-C Answer Date Recorded Frequency of Alcohol Consumption Never 04/20/2019 Average Number of Drinks Not on file 019 Frequency of Binge Drinking Not on file 06/2018 Sex and Gender Information Value Date Recorded Sex Assigned at Not on file Gender Identity Not on file Sexual Orientation Not on file documented as of this encounter Plan of Treatment Not on file documented as of this encounter Procedures Procedure Name Priority Date/Time Associated Diagnosis Comments DERMATOPATHOLOGY Routine 01/29/2024 11:1 2 AM CDT documented in this encounter Results * DERMATOPATHOLOGY (01/29/2024 11:12 AM CDT) Case Report Dermatopathology Report Case: [id number] Authorizing Provider: Abigail Carpenter MD Collected: 01/29/2024 11:12 AM Ordering Location: [facility] - Received: 01/30/2024 06:59 AM DermPath Lab Pathologist: Angélica Smith MD Specimen: Skin, right forearm 1:56 PM CDT DERMATOPATHOLOGY LABORATORY Final Diagnosis Specimen A. SKIN, right forearm: RESIDUAL SQUAMOUS CELL CARCINOMA, WELL DIFFERENTIATED; NOT PRESENT AT MARGIN (C44.622) ACTINIC KERATOSIS; NOT PRESENT AT MARGIN (L57.0) POROKERATOSIS (Q82.8) DERMAL SCAR (L90.5) 1:56 PM T DERMATOPATHOLOGY LABORATORY Clinical History Bx proven SCC 1:56 PM CDT DERMATOPATHOLOGY LABORATORY Gross Description Specimen A: Received is one formalin filled container labeled with the patient's name and designated right forearm. The specimen consists of a non-oriented ellipse of skin measuring 26w86c6 mm. The epidermal surface is unremarkable. The margin is inked green. The 12 o'clock and 6 o'clock tips are submitted in cassette 1. The remainder of the ellipse is serially sectioned and submitted in cassette 2-4. Jar 0. 1:56 PM CDT DERMATOPATHOLOGY LABORATORY Microscopic Description Specimen A. SKIN, right forearm: Sections show an area of fibrosis, with adjacent neoplasm composed of clusters of atypical keratinocytes. Additionally, there is a focus in which the lower half of the epidermis shows disorderly maturation of keratinocytes with nuclear pleomorphism., Additionally, there is a lesion composed of a thinned epidermis, and cornoid lamella formation. These lesions are not present at the margin of the specimen. 1:56 PM T DERMATOPATHOLOGY LABORATORY Disclaimer An external and internal positive and negative controls are appropriate for the histochemical, immunohistochemical and immunofluorescence stain(s) in this case (if any), except where stated explicitly. The performance characteristics of the stain(s) cited in this report were developed and its performance characteristic determined by the Dermatopathology Laboratory at [facility], directed by Dr. Neo Parker. These tests need not be, and therefore are not, approved by the [place] Food and Drug Administration. The tests are used for clinical purposes. Billing Codes Specimen Charges Stain Charges 35452 1 4 1:56 PM CDT DERMATOPATHOLOGY LABORATORY Embedded Images 4 1:56 PM CDT DERMATOPATHOLOGY LABORATORY Pathology/Cytolo gy TISSUE SPECIMEN FROM SKIN / Unknown 01/29/2024 11:12 AM CDT 01/30/2024 6:59 AM CDT Abigail Carpenter MD LAB - PATHOLOGY/CYTO LOGY ORDERABLES DERMATOPATHOLOGY LABORATORY [facility] - Department of Dermatology [facility] [address] [place] [address], [address] [phone] documented in this encounter Visit Diagnoses Not on filedocumented in this encounter Care Teams Office Chair Assembler Relationship Specialty Start Date End Date Anam Reynolds MD [address] [facility] [address] Richards [address] [place] [phone] PCP - General 09/29/14 documented as of this encounter
--- OUTSIDE RECORDS SUMMARY | 2024-08-27 11:18 | XMS_ITS | Encounter Summary ---
Author Organization [facility] Facility Care Team Providers Care Market Developer Name Role Phone Anam Reynolds MD Primary Care Provider [phone] Anam Reynolds MD Unavailable [phone] Encounter Details Date Type Department Care Team (Latest Contact Info) Description 07/08/2018 Orders Only [facility]IN[facility] ProviderPaulina MD [address] [place], [place] [id number] Social History Tobacco Use Types Packs/Day Years Used Date Smoking Tobacco: Never Assessed Comments Unknown Sex and Gender Information Value Date Recorded Sex Assigned at Not on file Legal Sex Female 8:25 AM CDT Gender Identity Female 10/04/2020 10:37 AM CDT Sexual Orientation Not on file documented as of this encounter Plan of Treatment Not on file documented as of this encounter Procedures Procedure Name Priority Date/Time Associated Diagnosis Comments SCAN - PATHOLOGY 07/17/2018 12:0 0 AM OVERNIGHT HOUSEPERSON COLONOSCOPY - SCAN 07/08/2018 12 :00 AM OVERNIGHT HOUSEPERSON documented in this encounter Results * SCAN - PATHOLOGY (07/17/2018 12:00 AM OVERNIGHT HOUSEPERSON) Narrative 07/17/2018 12:00 AM OVERNIGHT HOUSEPERSON Ordered by an unspecified provider. Historical Provider Final Res ult * COLONOSCOPY - SCAN (07/08/2018 12:00 AM OVERNIGHT HOUSEPERSON) Narrative 07/08/2018 12:00 AM OVERNIGHT HOUSEPERSON Ordered by an unspecified provider. us Historical Provider Final Res ult documented in this encounter Visit Diagnoses Not on filedocumented in this encounter Additional Health Concerns Infection Onset Date Last Indicated Resolved Time COVID: Suspected 03/23/2021 03/24/2021 03/24/2021 4:25 PM CDT COVID19 03/24/2021 03/24/2021 04/07/2021 3:05 AM OVERNIGHT HOUSEPERSON COVID: Recovered Comment:Added based on recent COVID infection. 04/07/2021 04/18/2021 08/05/2021 3:05 AM C DT COVID: Suspected 11/18/2023 11/18/2023 11/18/2023 7:30 PM CDT COVID: Suspected 11/18/2023 11/18/2023 11/18/2023 10:52 PM CDT documented as of this encounter Care Teams Market Developer Relationship Specialty Start Date End Date Anam Reynolds MD [address] [facility] [address] [place] [address] [place] [address] PCP - General Internal Medicine 07/03/18 Anam Reynolds MD [address] [facility] [place] [address] Internal Medicine 07/03/18 documented as of this encounter
--- OUTSIDE RECORDS SUMMARY | 2024-08-27 11:18 | XMS_ITS | Encounter Summary ---
Author Organization [facility] Healthcare Address [address] [place] [address] Care Team Providers Care Turf And Grounds Supervisor Name Role Phone Anam Reynolds MD Primary Care Provider [phone] Anam Reynolds MD Unavailable [phone] Encounter Details Date Type Department Care Team (Late st Contact Info) Description 05/27/2024 Orders Only [facility] Health Information Management [address] [place] [address] Scanning, Provider Social History Tobacco Use [...] Date/Time Associated Diagnosis Comments SCAN - RADIOLOGY/IMAGING 05/27/2024 documented in this encounter Results * SCAN - RADIOLOGY/IMAGING (05/27/2024) Anatomical Region Laterality Modality Other us Provider Scanning Final Result documented in this encounter Visit Diagnoses Not on filedocumented in this encounter Care Teams Turf And Grounds Supervisor Relationship Specialty Start Date End Date Anam Reynolds MD [address] [facility] [place] [address] PCP - General Internal Medicine 07/03/18 Anam Reynolds MD [address] [place] [address] Internal Medicine 07/03/18 documented as of this encounter
--- OUTSIDE RECORDS SUMMARY | 2024-08-27 11:18 | XMS_ITS | Encounter Summary ---
Author Organization [facility] Address [address] [facility] [place] [address] Care Team Providers Care Detective Homicide Squad Name Role Phone Anam Reynolds MD Primary Care Provider [phone] Encounter Details Date Type Department Care Team (Late st Contact Info) Description 01/08/2024 Lab Requisition [facility] - DermPath Lab [address] [facility], [place] [address] Nina Carlton DO [address] [facility] [address] [place] [address] Social History Tobacco Use Types Packs/Day Years [...] Priority Date/Time Associated Diagnosis Comments DERMATOPATHOLOGY Routine 01/08/2024 11:5 6 AM CDT documented in this encounter Results * DERMATOPATHOLOGY (01/08/2024 11:56 AM CDT) Case Report Dermatopathology Report Case: [id number] Authorizing Provider: Nina Carlton DO Collected: 01/08/2024 11:56 AM Ordering Location: [facility] - Received: 01/09/2024 01:49 PM DermPath Lab Pathologist: Tanesha Smith MD Specimens: A) - Skin, right forearm B) - Skin, left forearm C) - Skin, right lat lower ext 12:23 PM T DERMATOPATHOLOGY LABORATORY Final Diagnosis Specimen A. SKIN, right forearm: SQUAMOUS CELL CARCINOMA, WELL DIFFERENTIATED (C44.622) Specimen B. SKIN, left forearm: POROKERATOSIS (Q82.8) Specimen C. SKIN, right lat lower ext: POROKERATOSIS (Q82.8) 12:23 PM T DERMATOPATHOLOGY LABORATORY Clinical History A-C: R/O NMSC 12:23 PM CDT DERMATOPATHOLOGY LABORATORY Gross Description Specimen A: Received is one formalin filled container labeled with the patient's name and designated right forearm. The specimen consists of a shave biopsy measuring 10x9x2 mm. Jar 0. Specimen B: Received is one formalin filled container labeled with the patient's name and designated left forearm. The specimen consists of a shave biopsy measuring 06w88n7 mm. Jar 0. Specimen C: Received is one formalin filled container labeled with the patient's name and designated right lat lower ext. The specimen consists of a shave biopsy measuring 11x9x1 mm. Jar 0. 12:23 PM CDT DERMATOPATHOLOGY LABORATORY Microscopic Description Specimen A. SKIN, right forearm: Arising in the epidermis and extending into the dermis there are irregularly shaped aggregates of keratinocytes showing evidence of premature cornification. Specimen B. SKIN, left forearm: There is a sparse to moderately dense lichenoid lymphohistiocytic infiltrate, a thinned epidermis, and cornoid lamella formation. Specimen C. SKIN, right lat lower ext: There is a sparse to moderately dense lichenoid lymphohistiocytic infiltrate, a thinned epidermis, and cornoid lamella formation. 12:23 PM CDT DERMATOPATHOLOGY LABORATORY Disclaimer An external and internal positive and negative controls are appropriate for the histochemical, immunohistochemical and immunofluorescence stain(s) in this case (if any), except where stated explicitly. The performance characteristics of the stain(s) cited in this report were developed and its performance characteristic determined by the Dermatopathology Laboratory at [facility], directed by Dr. Neo Parker. These tests need not be, and therefore are not, approved by the [place] Food and Drug Administration. The tests are used for clinical purposes. Billing Codes Specimen Charges Stain Charges 11879 94034 13881 1 1 1 4 12:23 PM CDT DERMATOPATHOLOGY LABORATORY Embedded Images 4 12:23 PM CDT DERMATOPATHOLOGY LABORATORY Pathology/Cytology TISSUE SPECIMEN FROM SKIN / Unknown 01/08/2024 11:56 AM CDT 01/09/2024 1:49 PM CDT Miscellaneous samples (specimen) TISSUE SPECIMEN FROM SKIN / Unknown 01/08/2024 11:56 AM CDT 01/09/2024 1:49 PM CDT Miscellaneous samples (specimen) TISSUE SPECIMEN FROM SKIN / Unknown 01/08/2024 11:56 AM CDT 01/09/2024 1:49 PM CDT Nina Carlton DO LAB - PATHOLOGY/C YTOLOGY ORDERABLES DERMATOPATHOLOGY LABORATORY [facility] - Department of Dermatology [facility] Medicine [address] [place] [address], [address]rd [address] [phone] documented in this encounter Visit Diagnoses Not on filedocumented in this encounter Care Teams Detective Homicide Squad Relationship Specialty Start Date End Date Anam Reynolds MD [facility] [place] [address] PCP - General 09/29/14 documented as of this encounter
--- OUTSIDE RECORDS SUMMARY | 2024-08-27 11:18 | XMS_ITS | Clinical Summary ---
Author Organization [facility] [employer] Address [address] [facility] [place] [address] Care Team Providers Care Securities Lending Trader Name Role Phone Anam Reynolds MD Primary Care Provider [phone] Source Comments [facility],non-owned Affiliates and Associated Physician Practices is amultiple site organization consisting of ambulatory clinics and hospital sitesin [place], [place], [place]. This disclosure is being madepursuant to the Care Everywhere program and may not contain all information available regarding this patient. Last updated 18.[facility] [employer] Allergies Active Allergy Reactions Criticality Noted Date Comments Codeine Vomiting Low 07/02/2017 Sulfa Drugs Swelling 07/02/2017 Tongue, lips swell, difficulty breathing Medications * Be aware that medications may not be up to date on this document. Alwaysverify current medications with the patient. Medication Sig Dispensed Refills Start Date End Date Status levothyroxine (SYNTHROID) 75 MCG tablet 03/04/2019 Active pravastatin (PRAVACHOL) 20 MG tablet Take 20 mg by mouth once daily 04/30/2019 Active Immunizations Name Administration Dates Next Due FLU VACCINE QUAD IIV4 SPLIT 0.25 ML IM 8,02/25/2017,05/03/2016 INFLUENZA VACCINE 03/04/2019 INFLUENZA VACCINE, QUADR. (F LUZONE; FLULAVAL; FLUARIX; AFLURIA QUADRIVALENT; 6MO+), 0.5 ML (IIV4) 03/04/2019 Social History Tobacco Use Types Packs/Day Years [...] on file Sexual Orientation Not on file Last Filed Vital Signs Vital Sign Reading Time Taken Comments Blood Pressure 144/73 05/06/2019 11:49 AM UTILIZATION MANAGER Pulse 80 05/06/2019 11:49 AM UTILIZATION MANAGER Temperature 36.5 C (97.7 F) 05/06/2019 11:49 AM UTILIZATION MANAGER Respiratory Rate - - Oxygen Saturation 96% 05/06/2019 11:49 AM UTILIZATION MANAGER Inhaled Oxygen Concentration - - Weight 63.5 kg (140 lb) 04/20/2019 12:46 PM UTILIZATION MANAGER Height 152.4 cm (5') 04/20/2019 12:46 PM UTILIZATION MANAGER Body Mass Index 27.34 04/20/2019 12:46 PM UTILIZATION MANAGER Plan of Treatment Health Maintenance Due Date Last Done Comments BONE DENSITY TESTING 1955 COLOGUARD (AGES 45-75) - COLON CA SCREENING 1955 COLON MONITORING 1955 COLONOSCOPY - COLON CA SCREENING 1955 CT COLONOGRAPHY - COLON CA SCREENING 1955 Colorectal Cancer Screening 1955 FIT - COLON CA SCREENING 1955 FLEX SIG - COLON CA SCREENING 1955 MAMMOGRAM 1955 MEDICARE AWV 12 MONTHS 1955 Opioid Medication Agreement - Annual 1955 HEPATITIS C SCREENING 12/05/1973 DTAP/TDAP/TD VACCINES (1 - Tdap) 12/09/1974 PNEUMOCOCCAL VACCINE 50+ (1 of 1 - PCV) 12/09/2005 ZOSTER VACCINE (1 of 2) 12/09/2005 SCREENING FOR DIABETES 04/20/2019 COVID-19 VACCINE (1 - season) 2024 DEPRESSION SCREENING 05/20/2024 MEDICARE AWV CALENDAR YEAR 2024 INFLUENZA VACCINE (Season Ended) 2025 03/04/2019, 03/04/2019, 02/27/2018, Additional history exists Respiratory Syncytial Virus (RSV) Vaccine Pt: or over 60 yrs (1 - 1-dose 75+ series) 12/09/2030 HEPATITIS B VACCINE Aged Out No longe r eligible based on patient's age to complete this topic HIB VACCINE Aged Out No longer eligi ble based on patient's age to complete this topic HPV VACCINE Aged Out No longer eligi ble based on patient's age to complete this topic MENINGOCOCCAL (Group B) VACCINE SHARED DECISION-MAKING Aged Out No longer eligible based on patient's age to complete this topic MENINGOCOCCAL GROUPS A/C/Y/W VACCINE Aged Out No longer eligible based on patient's age to complete this topic Care Teams Securities Lending Trader Relationship Specialty Start Date End Date Anam Reynolds MD [address] [facility] [address] [place] [phone] PCP - General 09/29/14
--- OUTSIDE RECORDS SUMMARY | 2024-08-27 11:18 | XMS_ITS | Clinical Summary ---
Author Organization [facility] Address [address] [place] [address] Care Team Providers Care Client Customer Manager Name Role Phone Anam Reynolds MD Primary Care Provider Allergies Active Allergy Reactions Criticality Noted Date Comments Codeine Vomiting 07/02/2017 Sulfa Antibiotics Swelling 07/02/2017 Tongue, lips swell, difficulty breathing Tape Rash Low 07/02/2017 If leaves on too long, has skin irritation Medications levothyroxine 75 MCG tablet Take 1 tablet by mouth daily. 0 05/25/2017 Active pravastatin 20 MG tablet Take 20 mg by mouth nightly. Active traMADol 50 MG tablet Take 1 tablet (50 mg total) by mouth 2 (two) times a day. 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 ([facility]) 07/09/2017 Family History Medical History Relation Comments Diabetes Brother 1 Heart Disease Brother 1 pacemaker, defib rillator COPD Brother 2 Heart Disease Brother 2 wears lifevest, heart working 10% brain tumor Daughter Cancer Father intestinal CA Cancer Mother lung, brain CA Diabetes Mother Cancer Sister 1 breast CA Diabetes Sister 1 Hypertension Sister 2 Relation Status Comments Brother 1 Brother 2 Daughter Father Mother Sister 1 Sister 2 Social History Tobacco Use Types Packs/Day Years Used Date Smoking Tobacco: Former Cigarettes 1 07/13/1976 - 05/12/2017 Smokeless Tobacco: Never Alcohol Use Standard Drinks/Week Comments No 0 (1 standard drink = 0.6 oz pur e alcohol) Comments Unknown Sex and Gender Information Value Date Recorded Sex Assigned at Not on file Legal Sex Female 7:20 PM CDT Gender Identity Not on file Sexual Orientation Not on file Last Filed Vital Signs Vital Sign Reading Time Taken Comments Blood Pressure 118/82 01/02/2018 3:07 PM CDT Pulse 80 01/02/2018 3:07 PM CDT Temperature 36.8 C (98.3 F) 07/12/2017 5:47 AM DESIGN CELL ENGINEER Respiratory Rate 18 07/12/2017 5:47 AM DESIGN CELL ENGINEER Oxygen Saturation 96% 07/12/2017 5:47 AM DESIGN CELL ENGINEER Inhaled Oxygen Concentration - - Weight 68 kg (150 lb) 01/02/2018 3:07 PM CDT Height 152.4 cm (5') 01/02/2018 3:07 PM CDT Body Mass Index 29.29 01/02/2018 3:07 PM CDT Plan of Treatment Health Maintenance Due Date Last Done Comments Colorectal Cancer Screening Colonoscopy (10 Years) 1955 Hepatitis C 12/09/1973 DTaP, Tdap and Td Vaccines ( 1 - Tdap) 12/09/1974 Mammogram Screening 1995 Zoster Vaccines (1 of 2) 12/09/2005 Annual Medicare Wellness Visit 12/09/2020 COVID-19 Vaccine ( - 2023-2 5 season) 2024 RSV Immunization or 60+ Years (1 - 1-dose 75+ series) 12/09/2030 Dexa Scan (General) Completed 06/05/2022 Pneumococcal Vaccine: 65+ Years Completed 09/04/2022, 05/30/2021 Meningococcal B Vaccine Aged Out No l onger eligible based on patient's age to complete this topic Meningococcal Vaccine Aged Out No stewart sebastian eligible based on patient's age to complete this topic RSV Immunizations Under 20 Months Aged Out No longer eligible b ased on patient's age to complete this topic Medical Devices Implanted Type Area Degreaser Operator Device Identifier Shelf Expiration Date Model / Serial / Lot Putty [place] Matrix Dbm/Dbf Bone 1cc - [id number] Implanted:Qty : 1 on 07/09/2017 by Mele Marina MD at [facility] Bone Spine Cervical [employer] 01/15/2019 [id number] / / [id number] Plate Implanted:Qty : 1 on 07/09/2017 by Mele Marina MD at [facility] Plate N/A: Spine Cervical [employer] 07/09/2018 / / [id number] Screw Implanted:Qty : 1 on 07/09/2017 by Mele Marina MD at [facility] Screw N/A: Spine Cervical [employer] 07/09/2018 / / [id number] [place] Sea Spine Implanted:Qty : 1 on 07/09/2017 by Mele Marina MD at [facility] Spacer N/A: Spine Cervical 11/12/2021 [id number] / / [id number] Insurance [employer] Advance Directives Documents on File Type Date Recorded Patient Electronics Hardware Design Engineer Expl anation Advance Directives and Living Will 07/13/2017 9:22 AM 07/09/2017 POA FOR HEALTH CARE * Full Code (Latest Code Status on File) Date Activated Date Inactivated Comments 07/09/2017 8:32 PM 07/12/2017 5:47 PM Care Teams Client Customer Manager Relationship Specialty Start Date End Date Anam Reynolds MD [address] [facility] [address] [place] [phone] PCP - General 01/06/16
--- OUTSIDE RECORDS SUMMARY | 2024-08-27 11:18 | XMS_ITS | Encounter Summary ---
Author Organization [facility] Facility Care Team Providers Care Hospital Medical Biller Name Role Phone Anam Reynolds MD Primary Care Provider [phone] Anam Reynolds MD Primary Care Provider [phone] Anam Reynolds MD Unavailable [phone] Encounter Details Date Type Department Care Team (Latest Contact Info) Description 05/30/2016 Orders Only [facility] CLINCONV Provider, MD Paulina [address] [place] [address] Social History Tobacco Use Types Packs/Day Years [...] Priority Date/Time Associated Diagnosis Comments SCAN - LABS 06/08/2016 12:00 AM REPLANTING MACHINE CREW documented in this encounter Results * SCAN - LABS (06/08/2016 12:00 AM REPLANTING MACHINE CREW) Narrative 06/08/2016 12:00 AM REPLANTING MACHINE CREW Ordered by an unspecified provider. us Historical Provider Final Res ult documented in this encounter Visit Diagnoses Not on filedocumented in this encounter Additional Health Concerns Infection Onset Date Last Indicated Resolved Time COVID: Suspected 03/23/2021 03/24/2021 03/24/2021 4:25 PM CDT COVID19 03/24/2021 03/24/2021 04/07/2021 3:05 AM REPLANTING MACHINE CREW COVID: Recovered Comment:Added based on recent COVID infection. 04/07/2021 04/18/2021 08/05/2021 3:05 AM C DT COVID: Suspected 11/18/2023 11/18/2023 11/18/2023 7:30 PM CDT COVID: Suspected 11/18/2023 11/18/2023 11/18/2023 10:52 PM CDT documented as of this encounter Care Teams Hospital Medical Biller Relationship Specialty Start Date End Date Anam Reynolds MD [address] [facility] [place] [address] PCP - General Internal Medicine 06/17/18 07/02/18 Anam Reynolds MD [address] [place] [address] PCP - General Internal Medicine 07/03/18 Anam Reynolds MD [address] [place] [address] Internal Medicine 07/03/18 documented as of this encounter
--- OUTSIDE RECORDS SUMMARY | 2024-08-27 11:18 | XMS_ITS | Clinical Summary ---
Author Organization [facility] Address [address] [place] [address] Care Team Providers Care Buffer Chrome Name Role Phone Anam Reynolds MD Primary Care Provider [phone] Anam Reynolds MD Unavailable [phone] Allergies Active Allergy Reactions Criticality Noted Date Comments Adhesive Rash Medium 07/02/2017 If leaves on too long, has skin irritation Codeine Vomiting Low 07/02/2017 Codeine Phosphate Vomiting Low 08/26/2018 Famotidine Nausea only Low 06/03/2019 Sulfa (Sulfonamide Antibiotics) Swelling Medium 07/02/2017 Tongue, lips swell, difficulty breathing Tramadol Nausea & Vomiting Low 02/28/2021 Medications nebulizers misc as directed TAKE: as directed, as directed [...] 1 tablet (75 mcg total) by mouth boiler tender before breakfast Take one tablet in the [...] 1 polyp. She was seen by the insulation worker. Patient wants to have Cologuard test done. We will order that. Patient still can follow up with a insulation worker if she changes her mind. Assessment & Plan (07/11/2023 12:46 PM SPECIAL DELIVERY CARRIER): GI referral for colonoscopy Screening for osteoporosis 06/06/2022 Assessment & Plan (06/06/2022 11:08 AM SPECIAL DELIVERY CARRIER): DEXA scan in May 2022 showed T-score of -1.3. Discussed fall precautions and advised to take vitamin D 1000 units daily and calcium 500 mg daily LUQ pain 08/07/2021 Assessment & Plan (09/04/2021 11:27 AM CDT): Patient was seen by the insulation worker. She is on Protonix. She is scheduled for EGD to [facility] Assessment & Plan (08/07/2021 12:18 PM CDT): Patient complains of discomfort in the left upper quadrant area. Exam is unremarkable. Will obtain CT of the abdomen for further evaluation and will make a referral to see GI doctor for possible endoscopy. She will continue with current medications at this time Nausea 07/26/2021 Assessment & Plan (07/26/2021 11:24 AM SPECIAL DELIVERY CARRIER): Patient has severe nausea for couple of [...] will make a referral to see the implant polisher Assessment & Plan (05/30/2021 9:40 AM SPECIAL DELIVERY CARRIER): Skin rash in the lower extremities improved significantly. Assessment & Plan (04/18/2021 2:37 PM SPECIAL DELIVERY CARRIER): The patient has multiple flat erythematous lesions on both arms and legs. I think it is related to recent COVID infection. Patient has no itching. She will be started on prednisone in a tapering does and she will call us for persistent symptoms. Thrush 04/01/2021 Assessment & Plan (05/30/2021 9:41 AM SPECIAL DELIVERY CARRIER): We will refill nystatin 4 times daily for 10 days Assessment & Plan (04/01/2021 12:41 PM SPECIAL DELIVERY CARRIER): Due to use of Symbicort and recent steroid taper dose will refill nystatin swish and swallow. Patient instructed to follow up with PCP for any worsening symptoms. Patient verbalized understanding and agreed to plan of care. Encounter for well woman exalvaro m with routine gynecological exam 10/04/2020 BMI 25.0-25.9,adult [...] laminectomy Assessment & Plan (06/03/2019 2:27 PM SPECIAL DELIVERY CARRIER): Status post cervical fusion Assessment & Plan (03/04/2019 3:10 PM CDT): Status post diskectomy Assessment & Plan (12/03/2018 2:10 PM CDT): The patient had surgery with persistent pain in her upper extremities and she has follow-up with pain management. Anxiety 12/03/2018 Assessment & Plan (06/24/2024 7:56 AM SPECIAL DELIVERY CARRIER): Patient takes Xanax p.r.n.. No side effects with the medication Assessment & Plan (12/03/2018 2:10 PM CDT): The patient has increased anxiety because of chronic pain. We will start her on Wellbutrin XL 150 mg daily and side effects were explained Tobacco use 12/03/2018 Assessment & Plan (06/24/2024 3:31 PM SPECIAL DELIVERY CARRIER): Discussed smoking cessation and different methods to [...] again Assessment & Plan (06/06/2022 8:03 AM SPECIAL DELIVERY CARRIER): Discussed smoking cessation and different methods to [...] minutes. Assessment & Plan (05/30/2021 9:42 AM SPECIAL DELIVERY CARRIER): Patient smokes about 5 cigarettes daily. Discussed [...] neuropathy Assessment & Plan (06/03/2019 2:27 PM SPECIAL DELIVERY CARRIER): The patient has a chronic neuropathy in [...] 12/24/2016 Assessment & Plan (06/24/2024 7:56 AM SPECIAL DELIVERY CARRIER): Patient is followed by pain management Assessment [...] testing Assessment & Plan (06/06/2022 8:03 AM SPECIAL DELIVERY CARRIER): Status post epidural injections in the past. Patient was seen by neurosurgeon. No surgical intervention is needed. Assessment & Plan (12/15/2021 12:24 PM CDT): Patient with chronic back pain status post epidural injections. She was evaluated by neurosurgeon. Does not seem that surgery will be of benefits. She takes baclofen once or twice daily with some relief. Assessment & Plan (05/30/2021 9:40 AM SPECIAL DELIVERY CARRIER): Patient was advised to follow-up with pain [...] help Assessment & Plan (06/03/2019 2:26 PM SPECIAL DELIVERY CARRIER): Patient was evaluated by more than 1 [...] 12/07/2016 Assessment & Plan (07/11/2023 8:08 AM SPECIAL DELIVERY CARRIER): Controlled on trazodone Assessment & Plan (02/26/2023 [...] 01/24/2016 Assessment & Plan (07/11/2023 8:08 AM SPECIAL DELIVERY CARRIER): Controlled on diet Assessment & Plan (02/26/2023 8:05 AM CDT): Controlled on diet Assessment & Plan (2022 5:31 PM CDT): Controlled on diet Assessment & Plan (06/06/2022 8:02 AM SPECIAL DELIVERY CARRIER): Continue low carb diet and encourage exercise as tolerated Assessment & Plan (03/06/2022 8:02 AM CDT): Continue low carb diet Assessment & Plan (12/15/2021 12:23 PM CDT): Fasting blood sugar was 105. Continue low carb diet Assessment & Plan (09/04/2021 11:26 AM CDT): Continue low calorie diet Assessment & Plan (05/30/2021 9:40 AM SPECIAL DELIVERY CARRIER): Continue low carb diet Assessment & Plan (03/07/2021 12:33 PM CDT): Continue low carb diet and increase activity as tolerated Assessment & Plan (12/06/2020 1:12 PM CDT): Continue low carb diet and ambulate as tolerated Assessment & Plan (09/06/2020 2:43 PM CDT): Continue low carb diet Assessment & Plan (06/08/2020 12:46 PM SPECIAL DELIVERY CARRIER): Low carb diet Assessment & Plan (03/08/2020 1:53 PM CDT): Continue low carb diet and we discussed weight loss Assessment & Plan (12/08/2019 12:42 PM CDT): Continue low carb diet and will continue to monitor Assessment & Plan (06/03/2019 12:37 PM SPECIAL DELIVERY CARRIER): Continue low carbohydrate diet Assessment & Plan (03/04/2019 3:10 PM CDT): Sugar level is normal Assessment & Plan (12/03/2018 2:08 PM CDT): Continue low carbohydrate diet and will continue to monitor Assessment & Plan (09/03/2018 12:23 PM CDT): Continue low carb diet History of breast cancer 10/15/2015 Assessment & Plan (06/24/2024 7:56 AM SPECIAL DELIVERY CARRIER): Status post mastectomy. She is up-to-date with [...] normal Assessment & Plan (05/30/2021 9:41 AM SPECIAL DELIVERY CARRIER): Status post mastectomy and she is up-to-date with mammogram Assessment & Plan (03/07/2021 12:34 PM CDT): Mammogram in January 2021 was normal Assessment & Plan (12/06/2020 1:12 PM CDT): Continue annual mammogram Assessment & Plan (12/08/2019 12:43 PM CDT): Continue with annual mammogram Assessment & Plan (06/03/2019 2:27 PM SPECIAL DELIVERY CARRIER): Patient was advised to have annual mammogram Assessment & Plan (12/03/2018 2:09 PM CDT): Status post lumpectomy and she does mammogram on annual basis COPD (chronic obstructive pulmonary disease) Assessment & Plan (06/24/2024 7:55 AM SPECIAL DELIVERY CARRIER): Asymptomatic. Continue Symbicort Assessment & Plan (01/27/2024 8:01 AM CDT): Asymptomatic. Continue Symbicort Assessment & Plan (10/18/2023 7:52 AM CDT): Asymptomatic. Continue Symbicort Assessment & Plan (07/11/2023 8:07 AM SPECIAL DELIVERY CARRIER): Asymptomatic. Continue Symbicort Assessment & Plan (02/26/2023 12:38 PM CDT): Asymptomatic. Continue Symbicort Assessment & Plan (2022 5:31 PM CDT): Asymptomatic Assessment & Plan (09/04/2022 8:06 AM CDT): Patient uses Symbicort with good results Assessment & Plan (06/06/2022 8:02 AM SPECIAL DELIVERY CARRIER): Patient uses Symbicort with good results Assessment & Plan (03/06/2022 8:02 AM CDT): Controlled on Symbicort Assessment & Plan (12/15/2021 12:23 PM CDT): Controlled on Symbicort Assessment & Plan (09/04/2021 11:26 AM CDT): Controlled on Symbicort. She uses albuterol inhaler on occasional basis Assessment & Plan (05/30/2021 9:41 AM SPECIAL DELIVERY CARRIER): Asymptomatic. She uses albuterol inhaler on occasional [...] cessation Assessment & Plan (06/08/2020 2:55 PM SPECIAL DELIVERY CARRIER): Patient was advised to cut down Symbicort [...] basis Assessment & Plan (06/03/2019 12:37 PM SPECIAL DELIVERY CARRIER): The patient is asymptomatic and we discussed [...] 6 Assessment & Plan (07/11/2023 8:08 AM SPECIAL DELIVERY CARRIER): Patient is stable with no GI symptoms Assessment & Plan (03/08/2020 1:53 PM CDT): Patient is stable with no GI symptoms Assessment & Plan (12/08/2019 12:42 PM CDT): Controlled on Pepcid Assessment & Plan (06/03/2019 12:37 PM SPECIAL DELIVERY CARRIER): Asymptomatic. Continue Pepcid Assessment & Plan (03/04/2019 3:09 PM CDT): Continue Pepcid 40 mg daily Assessment & Plan (12/03/2018 2:08 PM CDT): Controlled on Pepcid Assessment & Plan (09/03/2018 12:23 PM CDT): Asymptomatic Dyslipidemia 08/02/2015 Assessment & Plan (06/24/2024 7:55 AM SPECIAL DELIVERY CARRIER): Controlled on current medications. Continue low-fat diet. Will continue to monitor . Assessment & Plan (01/27/2024 8:01 AM CDT): Controlled on current medications. Continue low-fat diet. Will continue to monitor . Assessment & Plan (07/11/2023 8:08 AM SPECIAL DELIVERY CARRIER): Controlled on current medications. Continue low-fat diet. Will continue to monitor . Assessment & Plan (2022 5:31 PM CDT): Controlled on current medications. Continue low-fat diet. Will continue to monitor . Assessment & Plan (06/06/2022 8:02 AM SPECIAL DELIVERY CARRIER): Controlled on current medications. Continue low-fat diet. [...] . Assessment & Plan (05/30/2021 9:41 AM SPECIAL DELIVERY CARRIER): Controlled on current medications. Continue low-fat diet. [...] . Assessment & Plan (06/08/2020 12:46 PM SPECIAL DELIVERY CARRIER): Controlled on current medications. Continue low-fat diet. [...] . Assessment & Plan (06/03/2019 12:37 PM SPECIAL DELIVERY CARRIER): Controlled on current medications. Continue low-fat diet. [...] 08/02/2015 Assessment & Plan (06/24/2024 7:55 AM SPECIAL DELIVERY CARRIER): Continue current dose of medication. Will continue to monitor Assessment & Plan (01/27/2024 8:01 AM CDT): Continue current dose of medication. Will continue to monitor Assessment & Plan (10/18/2023 7:52 AM CDT): Continue current dose of medication. Will continue to monitor Assessment & Plan (07/11/2023 12:45 PM SPECIAL DELIVERY CARRIER): TSH is low. Will cut down levothyroxine [...] monitor Assessment & Plan (06/06/2022 8:02 AM SPECIAL DELIVERY CARRIER): Continue current dose of medication. Will continue [...] monitor Assessment & Plan (05/30/2021 9:40 AM SPECIAL DELIVERY CARRIER): Continue current dose of medication. Will continue [...] monitor Assessment & Plan (06/08/2020 2:56 PM SPECIAL DELIVERY CARRIER): TSH is low. We will cut down [...] monitor Assessment & Plan (06/03/2019 12:38 PM SPECIAL DELIVERY CARRIER): Continue current dose of medication. Will continue to monitor Assessment & Plan (03/04/2019 3:10 PM CDT): Continue current dose of medication. Will continue to monitor Assessment & Plan (12/03/2018 2:08 PM CDT): Continue current dose of medication. Will continue to monitor Assessment & Plan (09/03/2018 12:23 PM CDT): Controlled on medication Encounters Date Type Department Care Team Description 07/27/2024 Telephone [facility] [address] [place] [phone] Anam Reynolds MD Medical Question/Miscellaneous 06/24/2024 2:45 PM SPECIAL DELIVERY CARRIER Office Visit [facility] [address] [place] [phone] Anam Reynolds MD Acquired hypothyroidism (Primary Dx); Simple chronic bronchitis (HCC); Dyslipidemia; History of breast cancer; Spinal stenosis of lumbar region without neurogenic claudication; BMI 24.0-24.9, adult; Encounter for immunization; Tobacco use 06/17/2024 Orders Only [facility] [address] [place] [phone] Anam Reynolds MD 06/15/2024 Telephone [facility] [address] [place] [phone] Anam Reynolds MD Referral Request 06/01/2024 Orders Only [facility] Health Information Management [address] [place] [address] Scanning, Provider from Last 3 Months Immunizations Immunization Administration Dates Next Due Influenza, Quadrivalent, Hig h Dose, Preservative Free, Intrr 02/26/2023,03/07/2021 Influenza, Quadrivalent, Spl it, Intramuscular 02/27/2018,02/25/2017,05/03/2016 Influenza, Quadrivalent, Spl it, Preservative Free, Intramuscular 03/06/2022,03/08/2020,03/04/2019 Influenza, Trivalent, High D ose, Split, Preservative Free, Intramuscular 06/24/2024 Pneumococcal Conjugate PCV 13 05/30/2021 Pneumococcal Conjugate Pcv20 09/04/2022 Surgical History Surgery Date Site/Laterality Comments NECK SURGERY BREAST BIOPSY Bilateral BREAST LUMPECTOMY 05/20/1998 - 05/19/1999 Left SKIN CANCER EXCISION 01/19/2024 - 02/17/2024 Sqaumous cell right arm Medical History Medical History Date Comments COPD (chronic obstructive pulmonary disease) (HC C) GERD (gastroesophageal reflux disease) Thyroid disease Hyperlipidemia Hyperglycemia Breast cancer (HCC) 1998 Left Breast History of radiation therapy 1998 Lef t breast History of chemotherapy History of chicken pox Skin cancer Family History Medical History Relation Name Comments No Known Problems Father No Known Problems Mother Breast cancer Sister Relation Name Status Comments Father Mother Sister Social History Tobacco Use Types Packs/Day Years [...] AM CDT Sexual Orientation Not on file Obstetrics History Para Term AB IAB SAB Ectopic Multiple Livin g Live Births 1 1 1 Date Outcome GA Total Labor Labor/2nd/3rd Weight Sex Type Anes PTL Cris A1 A5 Name Clin Term Last Filed Vital Signs Vital Sign Reading Time Taken Comments Blood Pressure 140/80 06/24/2024 2:30 PM SPECIAL DELIVERY CARRIER Pulse 70 06/24/2024 2:30 PM SPECIAL DELIVERY CARRIER Temperature 36.4 C (97.5 F) 06/24/2024 2:30 PM SPECIAL DELIVERY CARRIER Respiratory Rate 18 06/24/2024 2:30 PM SPECIAL DELIVERY CARRIER Oxygen Saturation 99% 06/24/2024 2:30 PM SPECIAL DELIVERY CARRIER Inhaled Oxygen Concentration - - Weight 58.5 kg (129 lb) 06/24/2024 2:30 PM SPECIAL DELIVERY CARRIER Height 154.9 cm (5' 1 ) 06/24/2024 2:30 PM SPECIAL DELIVERY CARRIER Body Mass Index 24.37 06/24/2024 2:30 PM SPECIAL DELIVERY CARRIER Plan of Treatment Health Maintenance Due Date Last Done Comments DTaP/Tdap/Td Vaccine (1 - Tdap) 12/09/1966 Hepatitis B Screening 12/09/1973 Zoster Vaccine (1 of 2) 12/09/2005 Well Visit 65+ 10/04/2021 10/04/2020 Osteoporosis Screening-Bone Density Scan 06/05/2024 06/05/2022 Breast Cancer Screening-Mammogram 09/16/2024 09/17/2023, 06/19/2022, 02/01/2021, Additional history exists Depression Screening 10/17/2024 10/18/2023, 07/11/2023, 02/26/2023, Additional history exists Fall Risk Assessment 10/17/2024 10/18/2023, 07/11/2023, 02/26/2023, Additional history exists Colon Cancer Screening-DNA Stool 11/10/2026 11/11/2023, 07/08/2018, 05/30/2016 Colon Cancer Screening-CT Colonography Discontinued 07/08/2018 Colon Cancer Screening-Colonoscopy Discontinued 07/08/2018 Colon Cancer Screening-Sigmoidoscopy Discontinued 07/08/2018 Pneumococcal vaccine 65+ Completed 09/04/2022, 05/20 Hepatitis C Screening Completed 12/06/2022 Colon Cancer Screening-FIT Discontinued 11/10, 07/08/2018, 05/30/2016 Influenza Vaccine Completed 06/24/2024, , 03/06/2022, Additional history exists Medical Devices Implanted Type Area Plan Checker Device Identifier Shelf Expiration Date Model / Serial / Lot Spinal Fusion- 8 Implanted:07/04 (Quantity not on file) Cervical-Tash mbar Spine Procedures Procedure Name Priority Date/Time Associated Diagnosis Comments COMPREHENSIVE METABOLIC PANEL Routine 06/17/2024 12:14 PM SPECIAL DELIVERY CARRIER LIPID PANEL Routine 06/17/2024 12:14 PM SPECIAL DELIVERY CARRIER TSH Routine 06/17/2024 12:14 PM SPECIAL DELIVERY CARRIER T4, FREE Routine 06/17/2024 12:14 PM SPECIAL DELIVERY CARRIER CBC WITH AUTO DIFFERENTIAL Routine 06/17/2024 12:14 PM SPECIAL DELIVERY CARRIER SCAN - RADIOLOGY/IMAGING 06/01/2024 STOOL DNA COLOGUARD Routine 11/11/2023 11:15 AM CDT Colon cancer screening SCREENING MAMMOGRAM BILATERAL W GULSHAN Schedule Routine, Read Routine (OP Routine) 09/17/2023 10:37 AM CDT Breast cancer screening by mammogram HEPATITIS C ANTIBODY Routine 12/06/2022 11:59 AM CDT DEXA AXIAL SKELETON BONE DENSITY 1 OR MORE SITES Schedule Routine, Read Routine (OP Routine) 06/05/2022 3:40 PM SPECIAL DELIVERY CARRIER Postmenopausal HM COLONOSCOPY Routine 07/08/2018 from Last 3 Months or Most Recently Relevant to Health Maintenance Results * (ABNORMAL) CBC with auto differential (06/17/2024 12:14 PM SPECIAL DELIVERY CARRIER) WBC 5.7 3.8 - 10.8 Thousand/u L [...] [facility] 06/17/2024 12:1 4 PM SPECIAL DELIVERY CARRIER 06/17/2024 12:14 PM SPECIAL DELIVERY CARRIER Narrative [facility] - 06/18/2024 9:40 AM SPECIAL DELIVERY CARRIER FASTING:YES FASTING: YES Anam Reynolds MD LAB BLOOD ORDERABLES Final Result [facility] [address] [facility] [place] [address] * TSH (06/17/2024 12:14 PM SPECIAL DELIVERY CARRIER) TSH 0.47 0.40 - 4.50 mIU/L [facility] 06/17/2024 12:1 4 PM SPECIAL DELIVERY CARRIER 06/17/2024 12:14 PM SPECIAL DELIVERY CARRIER Narrative [facility] - 06/18/2024 9:40 AM SPECIAL DELIVERY CARRIER FASTING:YES FASTING: YES Anam Reynolds MD LAB BLOOD ORDERABLES Final Result Performing Organization Address [facility] [[email or web address]] Co de Phone Number [facility] [address] [facility] [place] [address] * T4, free (06/17/2024 12:14 PM SPECIAL DELIVERY CARRIER) Free T4 1.8 0.8 - 1.8 ng/dL [facility] 06/17/2024 12:1 4 PM SPECIAL DELIVERY CARRIER 06/17/2024 12:14 PM SPECIAL DELIVERY CARRIER Narrative [facility] - 06/18/2024 9:40 AM SPECIAL DELIVERY CARRIER FASTING:YES FASTING: YES Anam Reynolds MD LAB BLOOD ORDERABLES Final Result Performing Organization Address [facility] de Phone Number [facility]URENCE [facility] [address] [place] [address] * (ABNORMAL) Lipid panel (06/17/2024 12:14 PM SPECIAL DELIVERY CARRIER) Cholesterol 204(H) <200 mg/dL [facility] [...] LDL-C. Rao SS et al. RAMA. 2013;310(19): 3851-5651 (http://education.[employer]Cannae/faq/SLG107) Chol/HDL ratio 3.6 <5.0 (calc) [facility] Non-HDL, (LDL+VLDL) 148(H) <130 mg/dL (calc) [facility] Comment: For patients with diabetes plus 1 major ASCVD risk factor, treating to a non-HDL-C goal of <100 mg/dL (LDL-C of <70 mg/dL) is considered a therapeutic option. 06/17/2024 12:1 4 PM SPECIAL DELIVERY CARRIER 06/17/2024 12:14 PM SPECIAL DELIVERY CARRIER Narrative [facility] - 06/18/2024 9:40 AM SPECIAL DELIVERY CARRIER FASTING:YES FASTING: YES Anam Reynolds MD LAB BLOOD ORDERABLES Final Result [facility] [address] [address] [facility] [place] [address] * Comprehensive metabolic panel (06/17/2024 12:14 PM SPECIAL DELIVERY CARRIER) Glucose 86 65 - 99 mg/dL [facility] [...] [facility] 06/17/2024 12:1 4 PM SPECIAL DELIVERY CARRIER 06/17/2024 12:14 PM SPECIAL DELIVERY CARRIER Narrative [facility] - 06/18/2024 9:40 AM SPECIAL DELIVERY CARRIER FASTING:YES FASTING: YES Anam Reynolds MD LAB BLOOD ORDERABLES Final Result [facility] [address] [place] [address] * SCAN - RADIOLOGY/IMAGING (06/01/2024) Anatomical Region Laterality Modality Other us Provider Scanning Final Result * Stool DNA - Cologuard (11/11/2023 11:15 AM CDT) Stool DNA - Cologuard Negative Negative [facility] (CLIA #:[id number]) Comment: NEGATIVE TEST RESULT. A negative Cologuard [...] Gibbons. et al, N Engl J Med 2014;370(14):5019-4708) The normal value (reference range) for this assay is negative. COLOGUARD RE-SCREENING RECOMMENDATION: Periodic colorectal cancer screening is an important part of preventive healthcare for asymptomatic individuals at average risk for colorectal cancer. Following a negative Cologuard result, the [place] [employer] and U.S. Multi-Society Task Force screening guidelines recommend a Cologuard re-screening interval of 3 years. References: [place] [employer] Guideline for Colorectal Cancer Screening: https://www.cancer.org/cancer/ekjzy-uoxcea-mfdayc/rkqtjvbvy-vibqonxul-okeflgk/ac s-rec ommendations.html.; Doug GOMES, Satya DUVAL, Giulia TURNER, Colorectal Cancer Screening: Recommendations for Physicians and Patients from the U.S. Multi-Society Task Force on Colorectal Cancer Screening , Am J Gastroenterology 2017; 112:8083-9568. TEST DESCRIPTION: Composite algorithmic analysis of stool [...] Rios et al, N Engl J Med 2014;370(14):5682-2678.) Cologuard may produce a false negative or false positive result (no colorectal cancer or precancerous polyp present at colonoscopy follow up). A negative Cologuard test result does not guarantee the absence of CRC or advanced adenoma (pre-cancer). The current Cologuard screening interval is every 3 years. ([place] [employer] and U.S. Multi-Society Task Force). Cologuard performance data in a 10,000 patient pivotal study using colonoscopy as the reference method can be accessed at the following location: www.[employer]/results. Additional description of the Cologuard test process, warnings and precautions can be found at www.cologuard.com. Stool 11/11/2023 11:1 5 AM CDT 11/12/2023 8:02 AM CDT Aanm Reynolds MD LAB BODY FLUIDS AND STOOLS ORDERABLES Final Result [facility] (CLIA #:[id number]) [address] [place] [address] * Screening Mammogram Bilateral W Gulshan (09/17/2023 [...] age 40, based on guidelines of the [place] [employer] (ACR Practice Parameter for the Performance of Screening and Diagnostic Mammography) and [place] [employer]. For women [...] Hep C Ab NON-REACTI VE NON-REACT [facility] Comment: HCV antibody was non-reactive. There is no laboratory evidence of HCV infection. In most cases, no further action is required. However, if recent HCV exposure is suspected, a test for HCV RNA (test code 05155) is suggested. For additional information please refer to http://education.[employer]/faq/DIR63e8 (This link is being provided for informational/ educational purposes only.) 12/06/2022 11:5 9 AM CDT 12/06/2022 12:01 PM CDT Narrative [facility] - 12/07/2022 9:34 AM CDT FASTING:NO FASTING: NO Anam Reynolds MD LAB MICROBIOLOGY - GENERAL ORDERABLES Final Result [facility] [address] [place] [address] * Dexa Axial Skeleton Bone Density 1 or 2 Site (06/05/2022 3:40 PM SPECIAL DELIVERY CARRIER) Anatomical Region Laterality Modality Body N/A Mammography 06/06/2022 9:07 AM SPECIAL DELIVERY CARRIER Narrative 06/06/2022 9:08 AM SPECIAL DELIVERY CARRIER EXAM DESCRIPTION: DEXA AXIAL SKELETON BONE DENSITY 1 OR MORE SITES REASON FOR STUDY: 66 y/o year old F with given history of screening. Postmenopausal Plan Checker/Model: Code71 A (S/N [id number]) CLINICAL INFORMATION: Current height: 60 inches Maximum [...] Bryan Hernández M.D. MF: SHELLY Report ID: [id number] Reading Location: [id number] Procedure Note Bryan Hernández MD - 06/06/2022 EXAM DESCRIPTION: DEXA AXIAL SKELETON BONE DENSITY 1 OR MORE SITES REASON FOR STUDY: 66 y/o year old F with given history ofscreening. Postmenopausal Plan Checker/Model: Hologic Horizon A (S/N [id number]) CLINICAL INFORMATION: Current height: 60 inches Maximum [...] Bryan Hernández M.D. MF: [id number] Report ID: [id number] Reading Location: [id number] Anam Reynolds MD IM DXA PROCEDURES Final Re sult * COLONOSCOPY (07/08/2018) [facility] Colonoscopy Abnormal Comment:Dr. magdaleno repeat in 5 years Historical Provider HEALTH MAINTENANCE Final Result from Last 3 Months or Most Recently Relevant to Health Maintenance Insurance [facility] Care Teams Buffer Chrome Relationship Specialty Start Date End Date Anam Reynolds MD [address] [place] [address] [place] [id number] PCP - General Internal Medicine 07/03/18 Anam Reynolds MD [address] [place] [address] [place] [id number] Internal Medicine 07/03/18
--- OUTSIDE RECORDS SUMMARY | 2024-08-27 11:18 | XMS_ITS | Encounter Summary ---
Author Organization [facility] Facility Care Team Providers Care Gunite Nozzle Operator Name Role Phone Anam Reynolds MD Primary Care Provider [phone] Anam Reynolds MD Primary Care Provider [phone] Anam Reynolds MD Unavailable [phone] Encounter Details Date Type Department Care Team (Latest Contact Info) Description 05/08/2017 Orders Only [facility]INCON[facility] Provider, MD Paulina [address] [place] [id number] Social History Tobacco Use Types Packs/Day [...] Procedure Name Priority Date/Time Associated Diagnosis Comments PROCEDURE - RESULT 05/09/2017 12 :00 AM SENIOR CLINICAL RESEARCH SCIENTIST documented in this encounter Results * PROCEDURE - RESULT (05/09/2017 12:00 AM SENIOR CLINICAL RESEARCH SCIENTIST) Narrative 05/09/2017 12:00 AM SENIOR CLINICAL RESEARCH SCIENTIST Ordered by an unspecified provider. us Historical Provider Final Res ult documented in this encounter Visit Diagnoses Not on filedocumented in this encounter Additional Health Concerns Infection Onset Date Last Indicated Resolved Time COVID: Suspected 03/23/2021 03/24/2021 03/24/2021 4:25 PM CDT COVID19 03/24/2021 03/24/2021 04/07/2021 3:05 AM SENIOR CLINICAL RESEARCH SCIENTIST COVID: Recovered Comment:Added based on recent COVID infection. 04/07/2021 04/18/2021 08/05/2021 3:05 AM C DT COVID: Suspected 11/18/2023 11/18/2023 11/18/2023 7:30 PM CDT COVID: Suspected 11/18/2023 11/18/2023 11/18/2023 10:52 PM CDT documented as of this encounter Care Teams Gunite Nozzle Operator Relationship Specialty Start Date End Date Anam Reynolds MD [address] [place] [address] PCP - General Internal Medicine 06/17/18 07/02/18 Anam Reynolds MD [address] [place] [address] PCP - General Internal Medicine 07/03/18 Anam Reynolds MD [address] [place] [address] Internal Medicine 07/03/18 documented as of this encounter
[2024-08-27 14:13] LABS: Erythrocyte Sedimentation Rate 36 mm/hr (0-20)
[2024-08-27 15:19] LABS: Alanine Aminotransferase 16 U/L (6-35); Albumin Level 4.1 g/dL (3.5-5.1); Alkaline Phosphatase 86 U/L (38-126); Anion Gap 9 mmol/L (4-12); Aspartate Amino Transferase 24 U/L (14-36); Bilirubin,Total 0.5 mg/dL (0.2-1.3); Blood Urea Nitrogen 8 mg/dL (7-17); CRP < 0.5 mg/dL (<1.0); Calcium 9.2 mg/dL (8.4-10.2); Carbon Dioxide 26 mmol/L (22-30); Chloride 103 mmol/L (98-107); Estimated Glomerular Filt Rate > 60; Glucose 102 mg/dL (65-110); Potassium 3.7 mmol/L (3.4-5.0); Sodium 138 mmol/L (137-145)
== END 2024-08-27 10:29 | disposition home or self-care (01) ==
PROVIDERS: PCP Internal Medicine; Visit Provider Physician Assistant
DX: Z01.818 Encounter for other preprocedural examination (principal)
CPT/HCPCS: 36415; 80053; 81003; 85025; 85652; 86140; 93005